=== PATIENT | female | born 1980 | race African-American/Black ===

== ENCOUNTER 2018-09-06 09:00 | Outpatient (RCR) | payer OTHER | END 2018-09-07 | LOC: PT 09:00 | PROVIDERS: ATTEND Specialist | DX: M25.562 Pain in left knee (principal); R26.2 Difficulty in walking, not elsewhere classified; M62.81 Muscle weakness (generalized) ==

== ENCOUNTER 2018-10-04 08:00 | Outpatient (RCR) | payer OTHER | END 2018-10-07 | LOC: PT 08:00 | PROVIDERS: ATTEND Specialist | DX: M25.562 Pain in left knee (principal); R26.2 Difficulty in walking, not elsewhere classified; M62.81 Muscle weakness (generalized) ==

== ENCOUNTER 2019-10-17 08:42 | Emergency (ER) | payer OTHER ==
[~2019-10-17] VITALS: Ht 167.6 cm; Wt 106.6 kg
--- NOTE | 2019-10-17 10:17 | Diagnostic Imaging Report ---
EXAM: CHEST 2 VIEWS DATE: 10/17/2019 8:46 AM INDICATION: Shortness of breath COMPARISON: None FINDINGS: The trachea is midline. The lungs are symmetrically expanded without evidence for large focal consolidation, pneumothorax, or significant pleural effusion. The cardiomediastinal silhouette and pulmonary vasculature are within normal limits. No acute osseous abnormality is identified. The surrounding soft tissues are unremarkable. IMPRESSION: No acute cardiopulmonary process identified. Signed by: Dr. Ashkan Jaramillo MD on 10/17/2019 10:14 AM
--- OUTSIDE RECORDS SUMMARY | 2019-10-27 10:21 | XMS REPORT ---
[facility] Address Unknown Phone Unavailable Care Team Providers Care Manager Application Development Name Role Phone EVELIA LOZOYA Unavailable Unavailable Payers Payer Name Policy Type Policy Number Effective Date Expiration Date Problems This patient has no known problems. Allergies, Adverse Reactions, Alerts Allergy Name Allergy Type Status Severity Reaction(s) Onset Date Inactive Date Treating Clinician Comments Penicillins DA Active U 2019-06-12 00:00:00 Penicillins DA Active U 2013-10-17 00:00:00 Medications This patient has no known medications. Results Test Description Test Time Test Comments Text Results Atomic Results Result Comments CHEST 2 VIEWS 2019-10-17 10:13:00 [place] [id number] Patient Name: HUMBERTO BUI MR #: [id number] : 1980 Age/Sex: 39/F Req #: [id number] Adm Physician: Ordered by: EVELIA LOZOYA MD, MD Report #: [id number] Location: ER Room/Bed: Procedure: [id number] DX/CHEST 2 VIEWS Exam Date: 10/17/19 Exam Time: 900 REPORT STATUS: Signed EXAM: CHEST 2 VIEWS DATE: 10/17/2019 8:46 AM INDICATION: Shortness of breath COMPARISON: None FINDINGS: The trachea is midline. The lungs are symmetrically expanded without evidence for large focal consolidation, pneumothorax, or significant pleural effusion. The cardiomediastinal silhouette and pulmonary vasculature are within normal limits. No acute osseous abnormality is identified. The surrounding soft tissues are unremarkable. IMPRESSION: No acute cardiopulmonary process identified. Signed by: Dr. Ashkan Jaramillo MD on 10/17/2019 10:14 AM Dictated By: ASHKAN JARAMILLO MD 1014 Transcribed By: LIZBETH on 10/17/19 1014 COPY TO: EVELIA LOZOYA - XR ANKLE 3 + V LT 2019-06-12 20:50:00 FAX: Leia Francis NP [place]: St: REG Name: HUMBERTO BUI [facility] : 1980 Age/S: 39/F [address] [facility] Unit #: [id number] Loc: [place] [address] Phys: Leia Francis NP Acct: [id number] Dis Date: Status: REG ER PHONE #: [phone] Exam Date: 06/12/20192031 FAX #: [phone] Reason: pain sp fall EXAMS: CPT CODE: [id number] XR ANKLE 3 + V LT [id number] REASON FOR EXAM: pain sp fall EXAM ORDER DATE: 06/12/2019 8:16 PM Ordering Azeem: Leia Francis NP PROCEDURE: - XR ANKLE 3 + V LT FINDINGS: 3 views of the left ankle were obtained. The osseous structures are unremarkable in size and shape. The joint spaces are maintained. No evidence of fracture. The syndesmosis is intact. IMPRESSION: Unremarkable left ankle at 205 Reported and signed by: Neto Perry M.D. CC: Leia Francis NP Technologist: ROEL HuberR Trnscrd Date/Time/By: 06/12/2019 (2049) : By: Will Orig Print D/T: S: 06/12/2019 (2052) PAGE 1 Signed Report - XR HIP W/PEL UNI 2+V RT 2019-06-12 20:45:00 FAX: Leia Francis NP [place]: St: REG Name: HAOHUMBERTO M [facility] : 1980 Age/S: 39/F [address] [facility] Unit #: [id number] Loc: [place] [address] Phys: Leia Francis NP Acct: [id number] Dis Date: Status: REG ER PHONE #: [phone] Exam Date: 06/12/20192031 FAX #: [phone] Reason: pain sp fall EXAMS: CPT CODE: [id number] XR HIP W/PEL UNI 2+V RT [id number] REASON FOR EXAM: pain sp fall EXAM ORDER DATE: 06/12/2019 8:16 PM Ordering Azeem: Leia Francis NP PROCEDURE: - XR HIP W/PEL UNI 2+V RT FINDINGS: 3 views of the right hip with frontal view of the pelvis were obtained. The osseous structures are unremarkable in size and shape. The joint spaces are maintained. No evidence of fracture. There is normal alignment of the right hip joint IMPRESSION: Unremarkable right hip at 2044 Reported and signed by: Neto Perry M.D. CC: Leia Francis NP Technologist: Mateusz Reynoso RT(R Trnscrd Date/Time/By: 06/12/2019 (2044) : By: CiraVTFranky Orig Print D/T: S: 06/12/2019 (2047) PAGE 1 Signed Report - XR FOOT 3 + V LT 2019-06-12 20:44:00 FAX: Leia Francis NP [place]: St: REG Name: HUMBERTO BUI [facility] : 1980 Age/S: 39/F [address] [facility] Unit #: [id number] Loc: [place] [address] Phys: Leia Francis NP Acct: [id number] Dis Date: Status: REG ER PHONE #: [phone] Exam Date: 06/12/20192031 FAX #: [phone] Reason: pain sp fall EXAMS: CPT CODE: [id number] XR FOOT 3 + [place] [id number] REASON FOR EXAM: pain sp fall EXAM ORDER DATE: 06/12/2019 8:16 PM Ordering Azeem: Leia Francis NP PROCEDURE: - XR FOOT 3 + V LT FINDINGS: 3 views of the left foot were obtained. The osseous structures are unremarkable in size and shape. The joint spaces are maintained. No evidence of fracture. The phalanges are intact. The metatarsal and tarsal bones are unremarkable IMPRESSION: Unremarkable left foot at 2043 Reported and signed by: Neto Perry M.D. CC: Leia Francis NP Technologist: Mateusz Reynoso RT(R Trnscrd Date/Time/By: 06/12/2019 (2043) : By: Will Orig Print D/T: S: 06/12/2019 (2047) PAGE 1 Signed Report SCR MAMM BILATERAL JULIANNE CAD DIGITAL 2019-06-07 13:18:04 - SCR MAMM BILATERAL JULIANNE CAD DIGITALBILATERAL FIRST EVER DIGITAL SCREENING MAMMOGRAM 3D/2D WITH CAD: 06/07/2019CLINICAL: Asymptomatic. Digital breast tomosynthesis was performed in addition to routine CC and MLO views. Current mammographic images were evaluated by either a [employer] [facility] M-Vu or a [employer] ImageChecker CAD (computer aided detection system). No prior exams were available for comparison. There are scattered fibroglandular tissues in both breasts. No suspicious mass, architectural distortion, malignant type calcification, or lymph node abnormality detected. IMPRESSION: NEGATIVEThere is no mammographic evidence of malignancy. Resume annual screening mammography in one year. Juan Baldwin M.D. ss/josie:06/07/2019 13:18:04 Cigarette Filter Inspector: Janae MOSS, [facility]-FWletter sent: BIRADS 1-2 Normal Mammogram BI-RADS: 1 Negative
--- OUTSIDE RECORDS SUMMARY | 2019-10-27 10:21 | XMS REPORT ---
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 Maria Eugenia Whiteside Family history of malignant neoplasm of breast; maternal aunt age 45; BRCA neg active Maria Eugenia Whiteside ADJUSTMENT DISORDER, W/ MIXED ANXIETY AND DEPRESSED MOOD completed - Calderon Landa SPECIAL SCREENING EXAMINATION OTH SPEC VIRAL DZ active Stevo Doherty Tubal ligation, Hx of active Benjamin Salcido Stress at home active Benjamin Salcido Overweight active Benjamin Salcido Screening for hyperlipidemia active José Miguel Hernandez VITREOUS FLOATERS active Stevo Doherty Other vitreous opacities, bilateral completed - Stevo Doherty Abfnd Pap smear HPV DNA active Benjamin Salcido +hrHPV non 16/18/45 Immunization update active Jacinta Khan Headache, tension active Jacinta Frank Asthma active Benjamin Salcido Tobacco use active Preeti Urbina SPECIAL SCREENING EXAMINATION OTH SPEC VIRAL DZ active Stevo Doherty Regular astigmatism, bilateral completed - José Miguel Hernandez HIV INFECTION active José Miguel Hernandez ENCOUNTERS Date Type Provider Location Encounter Diagnosis - Ambulatory Encounter Benjamin Salcido [facility] Adult Medicine UNK - Ambulatory Encounter Benjamin Kelley [facility] Adult Medicine UNK - Ambulatory Encounter Benjamin Salcido [employer] Adult Medicine UNK - Ambulatory Encounter Calderon Alfaro Poole [facility] Behavior[facility] Health UNK - Ambulatory Encounter Neelam Thomas [facility] Behavior[facility] Health UNK - Ambulatory Encounter Benjamin Salcido [employer] Adult Medicine UNK - Ambulatory Encounter Alma Daniel [facility] Services UNK - Ambulatory Encounter Neelam Thomas [facility] Behavioral Health UNK - Ambulatory Encounter Calderon Poole [facility] Behavioral Health UNK - Ambulatory Encounter Benjamin Salcido [facility] Adult Medicine UNK - Ambulatory Encounter Benjamin Marquez [facility] Adult Medicine Screening mammogram NEC - Ambulatory Encounter Timoteo Hernandez [facility] Services UNK - Ambulatory Encounter Shukri Yeung [facility] MEDIATION COMMISSIONER UNK - Ambulatory Encounter Benjamin Omari Salcido [employer] [facility] Adult Medicine UNK - Ambulatory Encounter Calderon Stille Calderon Stille Traceyda Acacia Marie [facility] Behavioral Health ADJUSTMENT DISORDER, W/ MIXED ANXIETY AND DEPRESSED MOODDEPRESSIVE DISORDER, MAJOR, RECURRENT EPISODE, MODERATEGENERALIZED ANXIETY DISORDERDEPRESSIVE DISORDER, MAJOR, RECURRENT EPISODE, MILD - Ambulatory Encounter Benjamin Salcido [employer] [facility] Adult Medicine UNK - Ambulatory Encounter Benjamin Kramer [facility] Adult Medicine UNK - Ambulatory Encounter Benjamin Salcido [employer] [facility] Adult Medicine UNK - Ambulatory Encounter Neelam Benedictsdale [facility] Behavioral Health UNK - Ambulatory Encounter Maria Eugenia Whiteside [facility] MEDIATION COMMISSIONER Family history of malignant neoplasm of breast; maternal aunt age 45; BRCA neg - Ambulatory Encounter Maria Eugenia Whiteside [facility] OB UNK - Ambulatory Encounter Maria Eugenia Whiteside [facility] MEDIATION COMMISSIONER Family history of malignant neoplasm of breast; maternal aunt age 45; BRCA neg - Ambulatory Encounter Neelam William Coronado [facility] Behavioral Health DEPRESSIVE DISORDER, MAJOR, RECURRENT EPISODE, MODERATE - Ambulatory Encounter [facility] Maria Eugenia Whiteside [facility] MEDIATION COMMISSIONER UNK - Ambulatory Encounter Maria Eugenia Whiteside [facility] MEDIATION COMMISSIONER UNK - Ambulatory Encounter Maria Eugenia Correa [facility] MEDIATION COMMISSIONER Cervical high risk human papillomavirus (HPV) DNA test positive; 16/18/45 neg; co-testing in 1 yr - Ambulatory Encounter Neelam William [facility] Behavioral Health UNK - Ambulatory Encounter Bryanna Correa [facility] MEDIATION COMMISSIONER UNK - [facility] - Ambulatory Encounter Neelam William [facility] Behavioral Health UNK - Ambulatory [facility] - [facility]ulatory Encounter [facility] - Ambulatory Encounter Maria Eugenia Whiteside [facility] Adult Medicine UNK - Ambulatory Encounter Maria Eugenia Whiteside [employer] [facility] Adult Medicine UNK - Ambulatory Encounter Maria Eugenia Whiteside C MEDIATION COMMISSIONER UNK - Ambulatory Encounter Maria Eugenia Whiteside Simin Senegal [facility] MEDIATION COMMISSIONER Family history of malignant neoplasm of breast; maternal aunt age 45; BRCA negAnnual city carrier assistant examVenereal disease screening - Ambulatory Encounter Neelam William [facility] Behavioral Health ADJUSTMENT DISORDER, W/ MIXED ANXIETY AND DEPRESSED MOOD - Ambulatory Encounter Stevo Mendez Chas Stevo Doherty [facility] Vision UNK - Ambulatory Encounter Stevo Mendez Chas Stevo Mendez Doherty [facility] Vision UNK - Ambulatory Encounter Stevo Mendez Chas Steov Doherty Nadine Schwarz [facility] Vision SPECIAL SCREENING EXAMINATION OTH SPEC VIRAL DZ - Ambulatory Encounter Mary Almaraz [facility] Vision UNK - Ambulatory Encounter Mynor Rosales [facility] Services UNK - Ambulatory Encounter Sylvie Shin [facility] Behavioral Health UNK - Ambulatory Encounter Sylvie Shin [facility] Behavioral Health UNK - Ambulatory Encounter Benjamin VelasquezLogic [facility] Adult Medicine UNK - [facility] - [facility] Encounter Sylvie VelasquezLogic C Adult Medicine UNK - Ambulatory Encounter Sylvie VelasquezLogic [facility] Adult Medicine UNK - Ambulatory Encounter [facility]ido [facility] UNK - Ambulatory Encounter Benjamin Salcido Benjamin Salcido [facility] Adult Medicine UNK - Ambulatory Encounter Benjamin Salcido Benjamin Salcido Preeti Lawrence [facility] Adult Medicine OverweightStress at homeTubal ligation, Hx of - Ambulatory Encounter Benjamin Salcido Benjamin Salcido [facility] Adult Medicine UNK - Ambulatory Encounter Benjamin Salcido Benjamin Salcido [facility] Adult Medicine UNK - Ambulatory Encounter Benjamin Salcido Benjamin Salcido [facility] Adult Medicine UNK - Ambulatory Encounter Benjamin Salcido [facility]jmain [facility]cido [facility] - Ambulatory Encounter Benjamin Salcido Benjamin Salcido [facility] Adult Medicine UNK - Ambulatory Encounter Benjamin Salcido Benjamin Salcido [facility] Adult Medicine UNK - Ambulatory Encounter Jessie Toure [facility] Adult Medicine UNK - Ambulatory Encounter Jessie Toure [facility] Adult Medicine UNK - Ambulatory Encounter Benjamin Salcido Benjamin Salcido [facility] Adult Medicine UNK - Ambulatory Encounter Elenita [facility] UNK - Ambulatory Encounter Benjamin Salcido Benjamin Salcido [facility] Adult Medicine UNK - Ambulatory Encounter Benjamin Salcido Benjamin Salcido Sara Marie [facility] Adult Medicine UNK - Ambulatory Encounter Benjamin Salcido Benjamin Salcido [facility] Adult Medicine UNK - Ambulatory Encounter Benjamin Salcido Benjamin Salcido [facility] Adult Medicine UNK - Ambulatory Encounter [facility] UNK - Ambulatory Encounter Benjamin Salcido Benjamin Salcido [facility] Adult Medicine UNK - Ambulatory Encounter Benjamin Salcido Benjamin Salcido Preeti Urbina [facility] Adult Medicine UNK - Ambulatory Encounter Benjamin Salcido Benjamin Salcido Sara Marie [facility] Adult Medicine UNK - Ambulatory Encounter Benjamin Salcido Benjamin Salcido Sara Marie [facility] Adult Medicine UNK - Ambulatory Encounter Benjamin Salcido Benjamin Salcido [facility] Adult Medicine UNK - Ambulatory Encounter Benjamin Salcido Benjamin Salcido Freda Bowers [facility] Adult Medicine UNK - Ambulatory Encounter [facility] UNK - Ambulatory Encounter [facility] Care Coordination Desktop [employer] Benjamin Salcido Benjamin Salcido [facility] Adult Medicine UNK - Ambulatory Encounter Benjamin Salcido Benjamin Salcido [facility] Adult Medicine UNK - Ambulatory Encounter Benjamin Salcido Benjamin Salcido [facility] Adult Medicine UNK - Ambulatory Encounter [facility] Care Coordination Desktop [facility] Benjamin Salcido Benjamin Salcido [facility] Adult Medicine UNK - Ambulatory Encounter Benjamin Salcido Benjamin Salcido [facility] Adult Medicine UNK - Ambulatory Encounter Benjamin Salcido Benjamin Urbina [facility] Adult Medicine UNK - Ambulatory Encounter Benjamin Salcido Benjamin Salcido [facility] Adult Medicine UNK - Ambulatory Encounter José Miguel Hernandez [facility] Adult Medicine UNK - Ambulatory Encounter [facility] UNK - Ambulatory Encounter Benjamin Salcido Benjamin Salcidojerrod Marie [facility] Adult Medicine UNK - Ambulatory Encounter José Miguel Hernandez [facility] Adult Medicine UNK - Ambulatory Encounter José Miguel Colon [facility] Adult Medicine HIV INFECTIONRegular astigmatism, bilateralScreening for hyperlipidemia - Ambulatory Encounter Jacinta Marie [facility] Adult Medicine UNK - Ambulatory Encounter Jacinta Marie [facility] UNK - Ambulatory Encounter Jacinta Marie [facility] UNK - Ambulatory Encounter Benjamin Salcido [facility] Adult Medicine UNK - Ambulatory Encounter Corrie Chau [facility] Adult Medicine UNK - Ambulatory Encounter Dileep Aleman [facility] Vision UNK - Ambulatory Encounter Stevo Doherty Stevo Mendez Doherty [facility] Vision UNK - Ambulatory Encounter Stevo Whiteside Vanessa Doherty [facility] Vision UNK - Ambulatory Encounter Stevo Vanessa Chas Stevo Mendez Chas [facility] Other vitreous opacities, bilateralVITREOUS FLOATERS - Ambulatory Encounter Maira Patel [facility] Vision UNK - Ambulatory Encounter Yodit Holland [facility] Crew Person UNK - Ambulatory Encounter Yodit Holland [facility] Crew Person UNK - Ambulatory Encounter Yodithaley Cohendea [facility] Crew Person UNK - Ambulatory Encounter Stevo Whiteside Vanessa Chas Bandaherjerrod Chau [facility] Adult Medicine UNK - Ambulatory Encounter Sue Shannon [facility] Vision UNK - Ambulatory Encounter Dileep Aleman [facility] Vision UNK - Ambulatory Encounter Dileep Aleman [facility] Vision UNK - Ambulatory Encounter Dileep Aleman [facility] Vision UNK - Ambulatory Encounter iDleep Bellfern Shannon [facility] Vision Regular astigmatism, bilateral - Ambulatory Encounter Benjamin Salcido [facility] Adult Medicine UNK - Ambulatory Encounter Benjamin Urbina [facility] Adult Medicine Abfnd Pap smear HPV DNA - Ambulatory Encounter Yodit Holland [facility] Crew Person UNK - Ambulatory Encounter Yodit Holland [facility] Crew Person UNK - Ambulatory Encounter Jacinta Moses [facility] Adult Medicine UNK - Ambulatory Encounter Public Health Services Provider Lory Fowler [facility] Public Health Services UNK - Ambulatory Encounter Public Health Services Provider Loyr Fowler [facility] Public Health Services UNK - Ambulatory Encounter Suyapa Benton [facility] Public Health Services UNK - Ambulatory Encounter Suyapa Benton [facility] Public Health Services UNK - Ambulatory Encounter Suyapa Benton [facility] Public Health Services UNK - Ambulatory Encounter Suyapa Monjorge l [facility] Public Health Services UNK - Ambulatory Encounter Suyapa Benton [facility] Public Health Services UNK - Ambulatory Encounter Neelam William [facility] Crew Person UNK - Ambulatory Encounter Jacinta Marie [facility] Adult Medicine UNK - Ambulatory Encounter Public Health Services Provider Lory Benton [facility] Public Health Services UNK - Ambulatory Encounter Jacinta Leung [facility] Adult Medicine Headache, tensionImmunization update - Ambulatory Encounter Lory Almagueray [facility] Public Health Services UNK - Ambulatory Encounter Jacinta Marie [facility] Adult Medicine UNK - Ambulatory Encounter Public Health Services Provider Lory Janeth Benton LM Public Health Services UNK - Ambulatory Encounter Jacinta Marie [facility] Adult Medicine UNK - Ambulatory Encounter Public Health Services Provider Lory Almagueray Suyapalance Benton [facility] Public Health Services UNK - Ambulatory Encounter Jacinta Goodrich [facility] Adult Medicine UNK - [facility] Ambulatory Encounter Yodit Holland [facility] Crew Person UNK - Ambulatory Encounter Benjamin Salcido Benjamin Salcido [facility] Adult Medicine UNK - Ambulatory Encounter Benjamin Salcido Benjamin Ayersine Preeti Urbina [facility] Adult Medicine UNK - Ambulatory Encounter Mercedesradha Hunter [facility] Adult Medicine UNK - Ambulatory Encounter Yodit Holland LM Crew Person UNK - Ambulatory Encounter Benjamin Salcido Benjamin Salcido [facility] Adult Medicine UNK - Ambulatory Encounter Benjamin Salcido Benjamin Salcido [facility] Adult Medicine UNK - Ambulatory Encounter Benjamin Salcido Benjamin Salcido [facility] Adult Medicine UNK - Ambulatory Encounter Benjamin Salcido Benjamin Salcido [facility] Adult Medicine UNK - Ambulatory Encounter Cadence Locke [facility] Behavioral Health UNK - Ambulatory Encounter Benjamin Salcido Benjamin Salcido [facility] Adult Medicine UNK - Ambulatory Encounter Yodit Vila Locke [facility] Crew Person UNK - Ambulatory Encounter Benjamin Salcido [facility] Adult Medicine UNK - Ambulatory Encounter Benjamin Urbina [facility] Adult Medicine Tobacco useAsthma - Ambulatory Encounter Dileep Aleman [employer] [facility] Vision UNK - Ambulatory Encounter Monae Arceo [facility] Patient Education UNK - Ambulatory Encounter Ryan Moonez Monae Reyesaza [facility] Adult Medicine UNK - Ambulatory Encounter Dileep VelasquezLogic [facility] Vision UNK - Ambulatory Encounter Mairaradha LoeraPatel [facility] Vision UNK - Ambulatory Encounter Glen Guadalupe [facility] Adult Medicine UNK - Ambulatory Encounter Isha Montemayor Glen Guadalupe [facility] Adult Medicine UNK - Ambulatory Encounter Dileep VelasquezLogic [facility] Vision UNK - Ambulatory Encounter Sue Shannon [facility] Vision UNK - Ambulatory Encounter Stevo Doherty [facility] Vision UNK - Ambulatory Encounter Stevo Doherty Maira Patel [facility] Vision SPECIAL SCREENING EXAMINATION OTH SPEC VIRAL DZ - Ambulatory Encounter Sue Shannon [facility] Vision UNK - Ambulatory Encounter Dileep Aleman [facility] Vision UNK - Ambulatory Encounter Dileep Shannon [facility] Vision HIV INFECTIONRegular astigmatism, bilateral VITAL SIGNS No Information Available ALLERGIES Allergy Name Onset Date Reaction Criticality Status PENICILLIN High Criticality active REASON FOR REFERRAL No Information Available RESULTS Date Observation Value Provider Reference Range Interpretation Location rapid plasma reagin antibody, serum Non Reactive [facility] Non Reactive " HIV-1RNA, serum, by PCR, quantitative <20 copies/mL [facility] " alanine aminotransferase (SGPT), serum 14 1/L [facility] 0-32 " aspartate aminotransferase (SGOT), serum 18 1/L [facility] 0-40 " alkaline phosphatase, serum 88 1/L [facility] 39-117 " bilirubin, serum, total 0.2 mg/dL [facility] 0.0-1.2 " albumin/globulin ratio, serum 1.7 [facility] 1.2-2.2 " globulin, serum 2.5 [facility] 1.5-4.5 " albumin, serum 4.3 g/dL [facility] 3.5-5.5 " protein, total, serum 6.8 g/dL [facility] 6.0-8.5 " calcium, serum 9.7 mg/dL [facility] 8.7-10.2 " carbon dioxide, venous blood 24 mmol/L [facility] 20-29 " chloride, serum 100 mmol/L [facility] 96-106 " potassium, serum 5.3 mmol/L [facility] 3.5-5.2 High " sodium, serum 139 mmol/L [facility] 134-144 " urea nitrogen/creatinine ratio, serum 18 [facility] 9-23 " eGFR if 121 mL/min/((173/100).m2) [facility] >59 " Estimated Glomerular Filtration Rate (calc) 105 mL/min/((173/100).m2) [facility] >59 " creatinine, serum 0.72 mg/dL [facility] 0.57-1.00 " urea nitrogen, blood 13 mg/dL [facility] 6-24 " blood glucose, random 71 mg/dL [facility] 65-99 " immature granulocytes, percentage of total cells, blood 0 % [facility] Not Estab. " basophil count, absolute 0.0 x10E3/uL [facility] 0.0-0.2 " Eosinophil Absolute Count 0.2 X10E3/UL [facility] 0.0-0.4 " monocyte count, blood, automated 0.5 X10E3/UL [facility] 0.1-0.9 " lymphocyte count, blood, automated 2.6 X10E3/UL [facility] 0.7-3.1 " Absolute Neutrophils 5.9 X10E3/UL [facility] 1.4-7.0 " basophils as percent of blood leukocytes 0 % [facility] Not Estab. " eosinophils as percent of blood leukocytes 2 % [employer] Not Estab. " monocytes as percent of blood leukocytes 5 % [facility] Not Estab. " lymphocytes as percent of blood leukocytes 29 % [facility] Not Estab. " neutrophils as percent of blood leukocytes 64 % [facility] Not Estab. " platelet count 303 X10E3/UL [facility] 150-450 " red blood cell distribution width 13.4 % [facility] 12.3-15.4 " mean corpuscular hemoglobin concentration, RBC 32.8 G/DL [facility] 31.5-35.7 " mean corpuscular hemoglobin, RBC 31.9 pg [facility] 26.6-33.0 " mean corpuscular volume, RBC 97 fL [facility] 79-97 " hematocrit, blood 43.0 % [facility] 34.0-46.6 " hemoglobin, blood 14.1 g/dL [facility] 11.1-15.9 " erythrocyte (RBC) count 4.42 X10E6/UL [facility] 3.77-5.28 " leukocyte count, blood 9.2 X10E3/UL [facility] 3.4-10.8 " CD4/CD8 ratio 2.42 [facility] 0.92-3.72 " T-suppressor cells (CD8) as percent of blood lymphocytes 22.8 % [facility] 12.0-35.5 " absolute CD8 593 [facility] 109-897 " T-helper cells (CD4) as percent of blood lymphocytes 55.2 % [facility] 30.8-58.5 " T-helper cells (CD4) count 1435 /UL [facility] [phone] hepatitis B surface antigen Negative [facility] Negative " hepatitis C antibody, serum <0.1 [facility] 0.0-0.9 " rapid plasma reagin antibody, serum Non Reactive [facility] Non Reactive " HIV-1RNA, serum, by PCR, quantitative <20 copies/mL [facility] " alanine aminotransferase (SGPT), serum 18 1/L [facility] 0-32 " aspartate aminotransferase (SGOT), serum 19 1/L [facility] 0-40 " alkaline phosphatase, serum 85 1/L [facility] 39-117 " bilirubin, serum, total 0.2 mg/dL [facility] 0.0-1.2 " albumin/globulin ratio, serum 1.5 [facility] 1.2-2.2 " globulin, serum 2.8 [facility] 1.5-4.5 " albumin, serum 4.2 g/dL [facility] 3.5-5.5 " protein, total, serum 7.0 g/dL [facility] 6.0-8.5 " calcium, serum 9.4 mg/dL [facility] 8.7-10.2 " carbon dioxide, venous blood 23 mmol/L [facility] 20-29 " chloride, serum 102 mmol/L [facility] 96-106 " potassium, serum 4.9 mmol/L [facility] 3.5-5.2 " sodium, serum 139 mmol/L [facility] 134-144 " urea nitrogen/creatinine ratio, serum 19 [facility] 9-23 " eGFR if 118 mL/min/((173/100).m2) [facility] >59 " Estimated Glomerular Filtration Rate (calc) 102 mL/min/((173/100).m2) [facility] >59 " creatinine, serum 0.74 mg/dL [facility] 0.57-1.00 " urea nitrogen, blood 14 mg/dL [facility] 6-20 " blood glucose, random 96 mg/dL [facility] 65-99 " immature granulocytes, percentage of total cells, blood 0 % [facility] Not Estab. " basophil count, absolute 0.0 x10E3/uL [facility] 0.0-0.2 " Eosinophil Absolute Count 0.1 X10E3/UL [facility] 0.0-0.4 " monocyte count, blood, automated 0.4 X10E3/UL [facility] 0.1-0.9 " lymphocyte count, blood, automated 2.4 X10E3/UL [facility] 0.7-3.1 " Absolute Neutrophils 4.6 X10E3/UL [facility] 1.4-7.0 " basophils as percent of blood leukocytes 0 % [facility] Not Estab. " eosinophils as percent of blood leukocytes 2 % [employer] Not Estab. " monocytes as percent of blood leukocytes 6 % [facility] Not Estab. " lymphocytes as percent of blood leukocytes 31 % [facility] Not Estab. " neutrophils as percent of blood leukocytes 61 % [facility] Not Estab. " platelet count 264 X10E3/UL [facility] 150-450 " red blood cell distribution width 13.5 % [facility] 12.3-15.4 " mean corpuscular hemoglobin concentration, RBC 33.2 G/DL [facility] 31.5-35.7 " mean corpuscular hemoglobin, RBC 31.4 pg [facility] 26.6-33.0 " mean corpuscular volume, RBC 95 fL [facility] 79-97 " hematocrit, blood 40.7 % [facility] 34.0-46.6 " hemoglobin, blood 13.5 g/dL [facility] 11.1-15.9 " erythrocyte (RBC) count 4.30 X10E6/UL [facility] 3.77-5.28 " leukocyte count, blood 7.6 X10E3/UL [facility] 3.4-10.8 " CD4/CD8 ratio 2.56 [facility] 0.92-3.72 " T-suppressor cells (CD8) as percent of blood lymphocytes 22.3 % [facility] 12.0-35.5 " absolute CD8 535 [facility] 109-897 " T-helper cells (CD4) as percent of blood lymphocytes 57.1 % [facility] 30.8-58.5 " T-helper cells (CD4) count 1370 /UL [facility] [phone] LDL cholesterol, serum 80 mg/dL [facility] 0-99 " very low density lipoproteins 24 mg/dL [facility] 5-40 " HDL cholesterol, serum 57 mg/dL [facility] >39 " triglyceride, serum, fasting 119 mg/dL [facility] 0-149 " cholesterol, serum 161 mg/dL [facility] 092-614 3161/10/19 Quantiferon Gold TB blood test for tuberculosis screening Negative [facility] Negative Neisseria gonorrhoeae DNA probe Negative [facility] Negative " chlamydia DNA probe Negative [facility] Negative hepatitis B surface antigen Negative [facility] Negative " thyroid stimulating hormone, serum 1.320 u[iU]/mL [facility] 0.450-4.500 " hepatitis C antibody, serum <0.1 [facility] 0.0-0.9 " rapid plasma reagin antibody, serum Non Reactive [facility] Non Reactive " rubella antibody, serum, IgG 1.65 [facility] Immune >0.99 " hemoglobin A1C, blood, as % of total hemoglobin 5.6 % [facility] 4.8-5.6 " alanine aminotransferase (SGPT), serum 20 1/L [facility] 0-32 " aspartate aminotransferase (SGOT), serum 22 1/L [facility] 0-40 " alkaline phosphatase, serum 83 1/L [facility] 39-117 " bilirubin, serum, total <0.2 mg/dL [facility] 0.0-1.2 " albumin/globulin ratio, serum 1.6 [facility] 1.2-2.2 " globulin, serum 2.8 [facility] 1.5-4.5 " albumin, serum 4.5 g/dL [facility] 3.5-5.5 " protein, total, serum 7.3 g/dL [facility] 6.0-8.5 " calcium, serum 8.9 mg/dL [facility] 8.7-10.2 " carbon dioxide, venous blood 22 mmol/L [facility] 20-29 " chloride, serum 100 mmol/L [facility] 96-106 " potassium, serum 4.3 mmol/L [facility] 3.5-5.2 " sodium, serum 140 mmol/L [facility] 134-144 " urea nitrogen/creatinine ratio, serum 15 [facility] 9-23 " eGFR if 84 mL/min/((173/100).m2) [facility] >59 " Estimated Glomerular Filtration Rate (calc) 73 mL/min/((173/100).m2) [facility] >59 " creatinine, serum 0.98 mg/dL [facility] 0.57-1.00 " urea nitrogen, blood 15 mg/dL [facility] 6-20 " blood glucose, random 84 mg/dL [facility] 65-99 " immature granulocytes, percentage of total cells, blood 0 % [facility] Not Estab. " basophil count, absolute 0.0 x10E3/uL [facility] 0.0-0.2 " Eosinophil Absolute Count 0.1 X10E3/UL [facility] 0.0-0.4 " monocyte count, blood, automated 0.4 X10E3/UL [facility] 0.1-0.9 " lymphocyte count, blood, automated 2.8 X10E3/UL [facility] 0.7-3.1 " Absolute Neutrophils 5.0 X10E3/UL [facility] 1.4-7.0 " basophils as percent of blood leukocytes 0 % [facility] Not Estab. " eosinophils as percent of blood leukocytes 2 % [facility] Not Estab. " monocytes as percent of blood leukocytes 4 % [facility] Not Estab. " lymphocytes as percent of blood leukocytes 34 % [facility] Not Estab. " neutrophils as percent of blood leukocytes 60 % [facility] Not Estab. " platelet count 268 X10E3/UL [facility] 150-379 " red blood cell distribution width 13.5 % [facility] 12.3-15.4 " mean corpuscular hemoglobin concentration, RBC 33.8 G/DL [facility] 31.5-35.7 " mean corpuscular hemoglobin, RBC 32.1 pg [facility] 26.6-33.0 " mean corpuscular volume, RBC 95 fL [facility] 79-97 " hematocrit, blood 41.1 % [facility] 34.0-46.6 " hemoglobin, blood 13.9 g/dL [facility] 11.1-15.9 " erythrocyte (RBC) count 4.33 X10E6/UL [facility] 3.77-5.28 " leukocyte count, blood 8.4 X10E3/UL [facility] 3.4-10.8 LDL cholesterol, serum 86 mg/dL [facility] 0-99 " very low density lipoproteins 30 mg/dL [facility] 5-40 " HDL cholesterol, serum 62 mg/dL [facility] >39 " triglyceride, serum, fasting 150 mg/dL [facility] 0-149 High " cholesterol, serum 178 mg/dL [facility] [id number] 1677/10/19 rapid plasma reagin antibody, serum Non Reactive [facility] Non Reactive " HIV-1RNA, serum, by PCR, quantitative <20 copies/mL [facility] " alanine aminotransferase (SGPT), serum 18 1/L [facility] 0-32 " aspartate aminotransferase (SGOT), serum 19 1/L [facility] 0-40 " alkaline phosphatase, serum 83 1/L [facility] 39-117 " bilirubin, serum, total 0.4 mg/dL [facility] 0.0-1.2 " albumin/globulin ratio, serum 1.7 [facility] 1.2-2.2 " globulin, serum 2.6 [facility] 1.5-4.5 " albumin, serum 4.4 g/dL [facility] 3.5-5.5 " protein, total, serum 7.0 g/dL [facility] 6.0-8.5 " calcium, serum 9.6 mg/dL [facility] 8.7-10.2 " carbon dioxide, venous blood 24 mmol/L [facility] 20-29 " chloride, serum 102 mmol/L [facility] 96-106 " potassium, serum 4.8 mmol/L [facility] 3.5-5.2 " sodium, serum 139 mmol/L [facility] 134-144 " urea nitrogen/creatinine ratio, serum 14 [facility] 9-23 " eGFR if 101 mL/min/((173/100).m2) [facility] >59 " Estimated Glomerular Filtration Rate (calc) 88 mL/min/((173/100).m2) [facility] >59 " creatinine, serum 0.84 mg/dL [facility] 0.57-1.00 " urea nitrogen, blood 12 mg/dL [facility] 6-20 " blood glucose, random 105 mg/dL [facility] 65-99 High " immature granulocytes, percentage of total cells, blood 0 % [facility] Not Estab. " basophil count, absolute 0.0 x10E3/uL [facility] 0.0-0.2 " Eosinophil Absolute Count 0.1 X10E3/UL [facility] 0.0-0.4 " monocyte count, blood, automated 0.3 X10E3/UL [facility] 0.1-0.9 " lymphocyte count, blood, automated 2.0 X10E3/UL [facility] 0.7-3.1 " Absolute Neutrophils 4.9 X10E3/UL [facility] 1.4-7.0 " basophils as percent of blood leukocytes 0 % [facility] Not Estab. " eosinophils as percent of blood leukocytes 2 % [facility] Not Estab. " monocytes as percent of blood leukocytes 4 % [facility] Not Estab. " lymphocytes as percent of blood leukocytes 27 % [facility] Not Estab. " neutrophils as percent of blood leukocytes 67 % [facility] Not Estab. " platelet count 288 X10E3/UL [facility] 150-379 " red blood cell distribution width 13.0 % [facility] 12.3-15.4 " mean corpuscular hemoglobin concentration, RBC 33.0 G/DL [facility] 31.5-35.7 " mean corpuscular hemoglobin, RBC 31.2 pg [facility] 26.6-33.0 " mean corpuscular volume, RBC 95 fL [facility] 79-97 " hematocrit, blood 43.6 % [facility] 34.0-46.6 " hemoglobin, blood 14.4 g/dL [facility] 11.1-15.9 " erythrocyte (RBC) count 4.61 X10E6/UL [facility] 3.77-5.28 " leukocyte count, blood 7.4 X10E3/UL [facility] 3.4-10.8 " CD4/CD8 ratio 2.61 [facility] 0.92-3.72 " T-suppressor cells (CD8) as percent of blood lymphocytes 22.8 % [facility] 12.0-35.5 " absolute CD8 456 [facility] 109-897 " T-helper cells (CD4) as percent of blood lymphocytes 59.6 % [facility] 30.8-58.5 High " T-helper cells (CD4) count 1192 /UL [facility] [phone] hepatitis B surface antigen Negative [facility] Negative " hepatitis C antibody, serum <0.1 [facility] 0.0-0.9 " rapid plasma reagin antibody, serum Non Reactive [facility] Non Reactive " HIV-1RNA, serum, by PCR, quantitative <20 copies/mL [facility] " LDL cholesterol, serum 100 mg/dL [facility] 0-99 High " very low density lipoproteins 20 mg/dL [facility] 5-40 " HDL cholesterol, serum 64 mg/dL [facility] >39 " triglyceride, serum, fasting 100 mg/dL [facility] 0-149 " cholesterol, serum 184 mg/dL [facility] 100-199 " alanine aminotransferase (SGPT), serum 14 1/L [facility] 0-32 " aspartate aminotransferase (SGOT), serum 18 1/L [facility] 0-40 " alkaline phosphatase, serum 80 1/L [facility] 39-117 " bilirubin, serum, total 0.2 mg/dL [facility] 0.0-1.2 " albumin/globulin ratio, serum 1.6 [facility] 1.2-2.2 " globulin, serum 2.6 [facility] 1.5-4.5 " albumin, serum 4.2 g/dL [facility] 3.5-5.5 " protein, total, serum 6.8 g/dL [facility] 6.0-8.5 " calcium, serum 9.3 mg/dL [facility] 8.7-10.2 " carbon dioxide, venous blood 25 mmol/L [facility] 18-29 " chloride, serum 100 mmol/L [facility] 96-106 " potassium, serum 4.3 mmol/L [facility] 3.5-5.2 " sodium, serum 141 mmol/L [facility] 134-144 " urea nitrogen/creatinine ratio, serum 15 [facility] 9-23 " eGFR if 112 mL/min/((173/100).m2) [facility] >59 " Estimated Glomerular Filtration Rate (calc) 97 mL/min/((173/100).m2) [facility] >59 " creatinine, serum 0.78 mg/dL [facility] 0.57-1.00 " urea nitrogen, blood 12 mg/dL [facility] 6-20 " blood glucose, random 90 mg/dL [facility] 65-99 " immature granulocytes, percentage of total cells, blood 0 % [facility] Not Estab. " basophil count, absolute 0.0 x10E3/uL [facility] 0.0-0.2 " Eosinophil Absolute Count 0.2 X10E3/UL [facility] 0.0-0.4 " monocyte count, blood, automated 0.5 X10E3/UL [facility] 0.1-0.9 " lymphocyte count, blood, automated 2.7 X10E3/UL [facility] 0.7-3.1 " Absolute Neutrophils 5.1 X10E3/UL [facility] 1.4-7.0 " basophils as percent of blood leukocytes 0 % [facility] Not Estab. " eosinophils as percent of blood leukocytes 2 % [facility] Not Estab. " monocytes as percent of blood leukocytes 6 % [facility] Not Estab. " lymphocytes as percent of blood leukocytes 32 % [facility] Not Estab. " neutrophils as percent of blood leukocytes 60 % [facility] Not Estab. " platelet count 266 X10E3/UL [facility] 150-379 " red blood cell distribution width 13.1 % [facility] 12.3-15.4 " mean corpuscular hemoglobin concentration, RBC 33.8 G/DL [facility] 31.5-35.7 " mean corpuscular hemoglobin, RBC 31.8 pg [facility] 26.6-33.0 " mean corpuscular volume, RBC 94 fL [facility] 79-97 " hematocrit, blood 40.0 % [facility] 34.0-46.6 " hemoglobin, blood 13.5 g/dL [facility] 11.1-15.9 " erythrocyte (RBC) count 4.25 X10E6/UL [facility] 3.77-5.28 " leukocyte count, blood 8.5 X10E3/UL [facility] 3.4-10.8 " CD4/CD8 ratio 2.62 [facility] 0.92-3.72 " T-suppressor cells (CD8) as percent of blood lymphocytes 22.9 % [facility] 12.0-35.5 " absolute CD8 618 [facility] 109-897 " T-helper cells (CD4) as percent of blood lymphocytes 59.9 % [facility] 30.8-58.5 High " T-helper cells (CD4) count 1617 /UL [facility] [id number] High rapid plasma reagin antibody, serum Non Reactive [facility] Non Reactive " HIV-1RNA, serum, by PCR, quantitative <20 copies/mL [facility] " LDL cholesterol, serum 98 mg/dL [facility] 0-99 " very low density lipoproteins 21 mg/dL [facility] 5-40 " HDL cholesterol, serum 57 mg/dL [facility] >39 " triglyceride, serum, fasting 104 mg/dL [facility] 0-149 " cholesterol, serum 176 mg/dL [facility] 100-199 " alanine aminotransferase (SGPT), serum 18 1/L [facility] 0-32 " aspartate aminotransferase (SGOT), serum 15 1/L [facility] 0-40 " alkaline phosphatase, serum 88 1/L [facility] 39-117 " bilirubin, serum, total 0.5 mg/dL [facility] 0.0-1.2 " albumin/globulin ratio, serum 1.5 [facility] 1.2-2.2 " globulin, serum 2.9 [facility] 1.5-4.5 " albumin, serum 4.3 g/dL [facility] 3.5-5.5 " protein, total, serum 7.2 g/dL [facility] 6.0-8.5 " calcium, serum 9.4 mg/dL [facility] 8.7-10.2 " carbon dioxide, venous blood 23 mmol/L [facility] 18-29 " chloride, serum 102 mmol/L [facility] 96-106 " potassium, serum 4.8 mmol/L [facility] 3.5-5.2 " sodium, serum 141 mmol/L [facility] 134-144 " urea nitrogen/creatinine ratio, serum 16 [facility] 9-23 " eGFR if 113 mL/min/((173/100).m2) [facility] >59 " Estimated Glomerular Filtration Rate (calc) 98 mL/min/((173/100).m2) [facility] >59 " creatinine, serum 0.77 mg/dL [facility] 0.57-1.00 " urea nitrogen, blood 12 mg/dL [facility] 6-20 " blood glucose, random 106 mg/dL [facility] 65-99 High " immature granulocytes, percentage of total cells, blood 0 % [facility] " basophil count, absolute 0.0 x10E3/uL [facility] 0.0-0.2 " Eosinophil Absolute Count 0.2 X10E3/UL [facility] 0.0-0.4 " monocyte count, blood, automated 0.5 X10E3/UL [facility] 0.1-0.9 " lymphocyte count, blood, automated 2.5 X10E3/UL [facility] 0.7-3.1 " Absolute Neutrophils 6.1 X10E3/UL [facility] 1.4-7.0 " basophils as percent of blood leukocytes 0 % [facility] " eosinophils as percent of blood leukocytes 2 % [facility] " monocytes as percent of blood leukocytes 5 % [facility] " lymphocytes as percent of blood leukocytes 27 % [facility] " neutrophils as percent of blood leukocytes 66 % [facility] " platelet count 258 X10E3/UL [facility] 150-379 " red blood cell distribution width 13.4 % [facility] 12.3-15.4 " mean corpuscular hemoglobin concentration, RBC 33.9 G/DL [facility] 31.5-35.7 " mean corpuscular hemoglobin, RBC 32.6 pg [facility] 26.6-33.0 " mean corpuscular volume, RBC 96 fL [facility] 79-97 " hematocrit, blood 43.6 % [facility] 34.0-46.6 " hemoglobin, blood 14.8 g/dL [facility] 11.1-15.9 " erythrocyte (RBC) count 4.54 X10E6/UL [facility] 3.77-5.28 " leukocyte count, blood 9.3 X10E3/UL [facility] 3.4-10.8 " CD4/CD8 ratio 2.55 [facility] 0.92-3.72 " T-suppressor cells (CD8) as percent of blood lymphocytes 23.1 % [facility] 12.0-35.5 " absolute CD8 578 [facility] 109-897 " T-helper cells (CD4) as percent of blood lymphocytes 59.0 % [facility] 30.8-58.5 High " T-helper cells (CD4) count 1475 /UL [facility] [id number] hepatitis C antibody, serum <0.1 [facility] 0.0-0.9 " rapid plasma reagin antibody, serum Non Reactive [facility] Non Reactive " HIV-1RNA, serum, by PCR, quantitative <20 copies/mL [facility] " alanine aminotransferase (SGPT), serum 25 1/L [facility] 0-32 " aspartate aminotransferase (SGOT), serum 16 1/L [facility] 0-40 " alkaline phosphatase, serum 92 1/L [facility] 39-117 " bilirubin, serum, total 0.3 mg/dL [facility] 0.0-1.2 " albumin/globulin ratio, serum 1.9 [facility] 1.2-2.2 " globulin, serum 2.2 [facility] 1.5-4.5 " albumin, serum 4.1 g/dL [facility] 3.5-5.5 " protein, total, serum 6.3 g/dL [facility] 6.0-8.5 " calcium, serum 9.0 mg/dL [facility] 8.7-10.2 " carbon dioxide, venous blood 25 mmol/L [facility] 18-29 " chloride, serum 102 mmol/L [facility] 96-106 " potassium, serum 4.4 mmol/L [facility] 3.5-5.2 " sodium, serum 140 mmol/L [facility] 134-144 " urea nitrogen/creatinine ratio, serum 14 [facility] 8-20 " eGFR if 114 mL/min/((173/100).m2) [facility] >59 " Estimated Glomerular Filtration Rate (calc) 99 mL/min/((173/100).m2) [facility] >59 " creatinine, serum 0.77 mg/dL [facility] 0.57-1.00 " urea nitrogen, blood 11 mg/dL [facility] 6-20 " blood glucose, random 125 mg/dL [facility] 65-99 High " immature granulocytes, percentage of total cells, blood 0 % [facility] " basophil count, absolute 0.0 x10E3/uL [facility] 0.0-0.2 " Eosinophil Absolute Count 0.1 X10E3/UL [facility] 0.0-0.4 " monocyte count, blood, automated 0.3 X10E3/UL [facility] 0.1-0.9 " lymphocyte count, blood, automated 2.1 X10E3/UL [facility] 0.7-3.1 " Absolute Neutrophils 5.6 X10E3/UL [facility] 1.4-7.0 " basophils as percent of blood leukocytes 0 % [facility] " eosinophils as percent of blood leukocytes 2 % [facility] " monocytes as percent of blood leukocytes 4 % [facility] " lymphocytes as percent of blood leukocytes 26 % [facility] " neutrophils as percent of blood leukocytes 68 % [facility] " platelet count 242 X10E3/UL [facility] 150-379 " red blood cell distribution width 12.9 % [facility] 12.3-15.4 " mean corpuscular hemoglobin concentration, RBC 33.7 G/DL [facility] 31.5-35.7 " mean corpuscular hemoglobin, RBC 31.7 pg [facility] 26.6-33.0 " mean corpuscular volume, RBC 94 fL [facility] 79-97 " hematocrit, blood 41.2 % [facility] 34.0-46.6 " hemoglobin, blood 13.9 g/dL [facility] 11.1-15.9 " erythrocyte (RBC) count 4.38 X10E6/UL [facility] 3.77-5.28 " leukocyte count, blood 8.1 X10E3/UL [facility] 3.4-10.8 " CD4/CD8 ratio 2.83 [facility] 0.92-3.72 " T-suppressor cells (CD8) as percent of blood lymphocytes 21.2 % [facility] 12.0-35.5 " absolute CD8 445 [facility] 109-897 " T-helper cells (CD4) as percent of blood lymphocytes 59.9 % [facility] 30.8-58.5 High " T-helper cells (CD4) count 1258 /UL [facility] [phone] Quantiferon Gold TB blood test for tuberculosis screening Negative [facility] Negative " rapid plasma reagin antibody, serum Non Reactive [facility] Non Reactive " HIV-1RNA, serum, by PCR, quantitative <20 copies/mL [facility] " alanine aminotransferase (SGPT), serum 24 1/L [facility] 0-32 " aspartate aminotransferase (SGOT), serum 20 1/L [facility] 0-40 " alkaline phosphatase, serum 81 1/L [facility] 39-117 " bilirubin, serum, total 0.2 mg/dL [facility] 0.0-1.2 " albumin/globulin ratio, serum 1.8 [facility] 1.1-2.5 " globulin, serum 2.4 [facility] 1.5-4.5 " albumin, serum 4.2 g/dL [facility] 3.5-5.5 " protein, total, serum 6.6 g/dL [facility] 6.0-8.5 " calcium, serum 8.8 mg/dL [facility] 8.7-10.2 " carbon dioxide, venous blood 26 mmol/L [facility] 18-29 " chloride, serum 102 mmol/L [facility] 97-106 " potassium, serum 4.6 mmol/L [facility] 3.5-5.2 " sodium, serum 141 mmol/L [facility] 136-144 " urea nitrogen/creatinine ratio, serum 16 [facility] 8-20 " eGFR if 120 mL/min/((173/100).m2) [facility] >59 " Estimated Glomerular Filtration Rate (calc) 104 mL/min/((173/100).m2) [facility] >59 " creatinine, serum 0.74 mg/dL [facility] 0.57-1.00 " urea nitrogen, blood 12 mg/dL [facility] 6-20 " blood glucose, random 87 mg/dL [facility] 65-99 " immature granulocytes, percentage of total cells, blood 0 % [facility] " basophil count, absolute 0.0 x10E3/uL [facility] 0.0-0.2 " Eosinophil Absolute Count 0.2 X10E3/UL [facility] 0.0-0.4 " monocyte count, blood, automated 0.6 X10E3/UL [facility] 0.1-0.9 " lymphocyte count, blood, automated 3.5 X10E3/UL [facility] 0.7-3.1 High " Absolute Neutrophils 7.1 X10E3/UL [facility] 1.4-7.0 High " basophils as percent of blood leukocytes 0 % [facility] " eosinophils as percent of blood leukocytes 2 % [facility] " monocytes as percent of blood leukocytes 5 % [facility] " lymphocytes as percent of blood leukocytes 31 % [facility] " neutrophils as percent of blood leukocytes 62 % [facility] " platelet count 253 X10E3/UL [facility] 150-379 " red blood cell distribution width 13.2 % [facility] 12.3-15.4 " mean corpuscular hemoglobin concentration, RBC 34.6 G/DL [facility] 31.5-35.7 " mean corpuscular hemoglobin, RBC 31.6 pg [facility] 26.6-33.0 " mean corpuscular volume, RBC 91 fL [facility] 79-97 " hematocrit, blood 39.3 % [facility] 34.0-46.6 " hemoglobin, blood 13.6 g/dL [facility] 11.1-15.9 " erythrocyte (RBC) count 4.30 X10E6/UL [facility] 3.77-5.28 " leukocyte count, blood 11.4 X10E3/UL [facility] 3.4-10.8 High " CD4/CD8 ratio 2.36 [facility] 0.92-3.72 " T-suppressor cells (CD8) as percent of blood lymphocytes 24.0 % [facility] 12.0-35.5 " absolute CD8 840 [facility] 109-897 " T-helper cells (CD4) as percent of blood lymphocytes 56.6 % [facility] 30.8-58.5 " T-helper cells (CD4) count 1981 /UL [facility] [phone] High hepatitis A antibody, total Positive [facility] Negative Abnormal " hepatitis B core antibody, total Negative [facility] Negative " hepatitis B surface antigen Negative [facility] Negative " rapid plasma reagin antibody, serum Non Reactive [facility] Non Reactive " hepatitis C antibody, serum <0.1 [facility] 0.0-0.9 " HIV-2 antibodies, western blot Negative [facility] Negative " HIV-1/HIV-2 Ab, serum Positive [facility] Negative Abnormal " HIV-CMIA (Chemiluminescent Microparticle Immuno Assay) REAAL [facility] Non Reactive " toxoplasma gondii antibody, IgG <3.0 [facility] 0.0-7.1 " hepatitis B surface antibody Reactive [facility] " HIV-1RNA, serum, by PCR, quantitative <20 copies/mL [facility] " LDL cholesterol, serum 111 mg/dL [facility] 0-99 High " very low density lipoproteins 28 mg/dL [facility] 5-40 " HDL cholesterol, serum 53 mg/dL [facility] >39 " triglyceride, serum, fasting 142 mg/dL [facility] 0-149 " cholesterol, serum 192 mg/dL [facility] 100-199 " alanine aminotransferase (SGPT), serum 30 1/L [facility] 0-32 " aspartate aminotransferase (SGOT), serum 21 1/L [facility] 0-40 " alkaline phosphatase, serum 107 1/L [facility] 39-117 " bilirubin, serum, total 0.3 mg/dL [facility] 0.0-1.2 " albumin/globulin ratio, serum 1.4 [facility] 1.1-2.5 " globulin, serum 3.0 [facility] 1.5-4.5 " albumin, serum 4.1 g/dL [facility] 3.5-5.5 " protein, total, serum 7.1 g/dL [facility] 6.0-8.5 " calcium, serum 9.4 mg/dL [facility] 8.7-10.2 " carbon dioxide, venous blood 25 mmol/L [facility] 18-29 " chloride, serum 99 mmol/L [facility] 97-108 " potassium, serum 4.4 mmol/L [facility] 3.5-5.2 " sodium, serum 140 mmol/L [facility] 134-144 " urea nitrogen/creatinine ratio, serum 16 [facility] 8-20 " eGFR if 90 mL/min/((173/100).m2) [facility] >59 " Estimated Glomerular Filtration Rate (calc) 78 mL/min/((173/100).m2) [facility] >59 " creatinine, serum 0.94 mg/dL [facility] 0.57-1.00 " urea nitrogen, blood 15 mg/dL [facility] 6-20 " blood glucose, random 86 mg/dL [facility] 65-99 " immature granulocytes, percentage of total cells, blood 0 % [facility] " basophil count, absolute 0.1 x10E3/uL [facility] 0.0-0.2 " Eosinophil Absolute Count 0.2 X10E3/UL [facility] 0.0-0.4 " monocyte count, blood, automated 0.5 X10E3/UL [facility] 0.1-0.9 " lymphocyte count, blood, automated 3.0 X10E3/UL [facility] 0.7-3.1 " Absolute Neutrophils 6.7 X10E3/UL [facility] 1.4-7.0 " basophils as percent of blood leukocytes 1 % [facility] " eosinophils as percent of blood leukocytes 2 % [facility] " monocytes as percent of blood leukocytes 5 % [facility] " lymphocytes as percent of blood leukocytes 29 % [facility] " neutrophils as percent of blood leukocytes 63 % [facility] " platelet count 277 X10E3/UL [facility] 150-379 " red blood cell distribution width 13.3 % [facility] 12.3-15.4 " mean corpuscular hemoglobin concentration, RBC 33.1 G/DL [facility] 31.5-35.7 " mean corpuscular hemoglobin, RBC 31.5 pg [facility] 26.6-33.0 " mean corpuscular volume, RBC 95 fL [facility] 79-97 " hematocrit, blood 44.4 % [facility] 34.0-46.6 " hemoglobin, blood 14.7 g/dL [facility] 11.1-15.9 " erythrocyte (RBC) count 4.67 X10E6/UL [facility] 3.77-5.28 " leukocyte count, blood 10.4 X10E3/UL [facility] 3.4-10.8 " CD4/CD8 ratio 2.81 [facility] 0.92-3.72 " T-suppressor cells (CD8) as percent of blood lymphocytes 21.3 % [facility] 12.0-35.5 " absolute CD8 639 [facility] 109-897 " T-helper cells (CD4) as percent of blood lymphocytes 59.9 % [facility] 30.8-58.5 High " T-helper cells (CD4) count 1797 /UL [facility] [phone] High Neisseria gonorrhoeae DNA probe Negative [facility] Negative " chlamydia DNA probe Negative [facility] Negative hepatitis A antibody, total Positive [facility] Negative Abnormal " hepatitis B core antibody, total Negative [facility] Negative " hepatitis B surface antigen Negative [facility] Negative " thyroid stimulating hormone, serum 1.260 u[iU]/mL [facility] 0.450-4.500 " rapid plasma reagin antibody, serum Non Reactive [facility] Non Reactive " hepatitis C antibody, serum <0.1 [facility] 0.0-0.9 " HIV-1/HIV-2 Ab, serum Reactive [facility] Non Reactive Abnormal " HIV-CMIA (Chemiluminescent Microparticle Immuno Assay) Reactive [facility] Non Reactive Abnormal " hepatitis B surface antibody Reactive [facility] " hemoglobin A1C, blood, as % of total hemoglobin 5.6 % [facility] 4.8-5.6 " HIV-1RNA, serum, by PCR, quantitative <20 copies/mL [facility] " LDL cholesterol, serum 105 mg/dL [facility] 0-99 High " very low density lipoproteins 28 mg/dL [facility] 5-40 " HDL cholesterol, serum 53 mg/dL [facility] >39 " triglyceride, serum, fasting 138 mg/dL [facility] 0-149 " cholesterol, serum 186 mg/dL [facility] 100-199 " alanine aminotransferase (SGPT), serum 22 1/L [facility] 0-32 " aspartate aminotransferase (SGOT), serum 21 1/L [facility] 0-40 " alkaline phosphatase, serum 84 1/L [facility] 39-117 " bilirubin, serum, total 0.2 mg/dL [facility] 0.0-1.2 " albumin/globulin ratio, serum 1.7 [facility] 1.1-2.5 " globulin, serum 2.5 [facility] 1.5-4.5 " albumin, serum 4.2 g/dL [facility] 3.5-5.5 " protein, total, serum 6.7 g/dL [facility] 6.0-8.5 " calcium, serum 9.6 mg/dL [facility] 8.7-10.2 " carbon dioxide, venous blood 22 mmol/L [facility] 18-29 " chloride, serum 103 mmol/L [facility] 97-108 " potassium, serum 4.9 mmol/L [facility] 3.5-5.2 " sodium, serum 140 mmol/L [facility] 134-144 " urea nitrogen/creatinine ratio, serum 20 [facility] 8-20 " eGFR if 120 mL/min/((173/100).m2) [facility] >59 " Estimated Glomerular Filtration Rate (calc) 104 mL/min/((173/100).m2) [facility] >59 " creatinine, serum 0.74 mg/dL [facility] 0.57-1.00 " urea nitrogen, blood 15 mg/dL [facility] 6-20 " blood glucose, random 78 mg/dL [facility] 65-99 " immature granulocytes, percentage of total cells, blood 0 % [facility] " basophil count, absolute 0.0 x10E3/uL [facility] 0.0-0.2 " Eosinophil Absolute Count 0.1 X10E3/UL [facility] 0.0-0.4 " monocyte count, blood, automated 0.5 X10E3/UL [facility] 0.1-0.9 " lymphocyte count, blood, automated 2.6 X10E3/UL [facility] 0.7-3.1 " Absolute Neutrophils 6.4 X10E3/UL [facility] 1.4-7.0 " basophils as percent of blood leukocytes 0 % [facility] " eosinophils as percent of blood leukocytes 1 % [facility] " monocytes as percent of blood leukocytes 5 % [facility] " lymphocytes as percent of blood leukocytes 27 % [facility] " neutrophils as percent of blood leukocytes 67 % [facility] " platelet count 280 X10E3/UL [facility] 150-379 " red blood cell distribution width 13.3 % [facility] 12.3-15.4 " mean corpuscular hemoglobin concentration, RBC 34.1 G/DL [facility] 31.5-35.7 " mean corpuscular hemoglobin, RBC 31.2 pg [facility] 26.6-33.0 " mean corpuscular volume, RBC 91 fL [facility] 79-97 " hematocrit, blood 41.9 % [facility] 34.0-46.6 " hemoglobin, blood 14.3 g/dL [facility] 11.1-15.9 " erythrocyte (RBC) count 4.59 X10E6/UL [facility] 3.77-5.28 " leukocyte count, blood 9.7 X10E3/UL [facility] 3.4-10.8 " CD4/CD8 ratio 2.80 [facility] 0.92-3.72 " T-suppressor cells (CD8) as percent of blood lymphocytes 21.5 % [facility] 12.0-35.5 " absolute CD8 559 [facility] [id number] " T-helper cells (CD4) as percent of blood lymphocytes 60.2 % [facility] 30.8-58.5 High " T-helper cells (CD4) count 1565 /UL [facility] [phone] High Neisseria gonorrhoeae DNA probe Negative [facility] Negative " chlamydia DNA probe Negative [facility] Negative pH, urine, semiquantitative 5.5 Benjamin Omari " specific gravity, urine 1.025 Benjamin Salcido " beta HCG, urine, semiquantitative negative Preeti Urbina " glucose, urine, semiquantitative negative Preeti Urbina " bilirubin, urine negative Preeti Urbina " ketones, urine, by test strip negative Preeti Urbina " blood in urine (hemoglobin) by dipstick negative Preeti Urbina " protein, urine, semiquantitative (dipstick) negative Preeti Urbina " urobilinogen, urine, semiquantitative (dipstick) negative Preeti Urbina " nitrite, urine, semiquantitative negative Preeti Urbina " leukocyte esterase, urine, by dipstick trace Benjamin Omari " appearance, urine clear Preeti Urbina " urine color yellow Preeti Urbina HIV-1RNA, serum, by PCR, quantitative <20 Sue Shannon T-helper cells (CD4) count 1436 uL Sue Shannon HISTORY OF IMMUNIZATIONS Date Vaccine Dose Lot Number Status Fluzone Quadrivalent IM PF 0.5 ML [facility] [address]-44 [facility] HISTORY OF MEDICATION USE Medication Instructions Dates Provider Comments CHANTIX CONTINUING MONTH STEPHANIE 1 MG ORAL TABLET take as directed after starter pack is complete Shetal Poole CHANTIX STARTING MONTH STEPHANIE 0.5 MG X 11 & 1 MG X 42 ORAL TABLET take starter pack as directed Shetal Poole LEXAPRO 10 MG ORAL TABLET 1 By Mouth Every Day with 5mg pill to equal 15mg daily dose Shetal Poole LEXAPRO 5 MG ORAL TABLET 1 pill by mouth daily with 10mg pill to equal 15mg daily dose Shetal Poole CHANTIX 1 MG TABLET TAKE DIRECTED PER package instructions - Geraldo Marie BUPROPION HCL ER (SR) 150 MG ORAL TABLET EXTENDED RELEASE 12 HOUR 1 By Mouth every 12 hours - Benjamin Salcido CHANTIX CONTINUING MONTH STEPHANIE 1 MG ORAL TABLET one tablet by mouth twice a day for 8 more weeks for 12 total weeks of therapy - Benjamin Salcido CHANTIX STARTING MONTH STEPHANIE 0.5 MG X 11 & 1 MG X 42 ORAL TABLET take 0.5 mg daily for 3 days then twice a day for 4 days. Then take 1mg twice a day for 11 more weeks - Benjamin Salcido NICOTINE 21-14-7 MG/24HR TRANSDERMAL KIT - Benjamin Salcido FIORICET 50-300-40 MG ORAL CAPSULE 1 tablet every 4h as needed for headache - Benjamin Salcido TRIUMEQ 600-50-300 TABLET TAKE ONE TABLET BY MOUTH EVERY DAY WITH OR WITHOUT FOOD Sara Cabello [facility], REYATAZ CAPSULE - Benjamin Salcido NORVIR TABLET - Benjamin Salcido TRUVADA TABLET - Benjamin Salcido PROVENTIL HFA 108 (90 BASE) MCG/ACT INHALATION AEROSOL SOLUTION 2 puffs every 4 hours as needed - Benjamin Salcido SOCIAL HISTORY Date Observation Value Provider drug use, illicit Previously Jaiden Kelley " alcohol use Currently Jaiden Kelley " social history E&M . Raised by mom in [place], reports "pretty good" relationship, one half sister and two half brothers from dad's side but didn't live together growing up. Distant relationship with dad. With for 14 years, 8; relationship with family is good, close to her sister and middle brother Not homeless. Born in [facility]. City: [place] . State: [place]. lives in apartment with , have 2 kids and both are HIV negative. oldest daughter is 13y and youngest daughter is 7y. Mom also lives there. Approved for home through [employer], will start building this year. Not employed. 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 Sexual orientation: Heterosexual. Gender identity: Female. Gender of partner(s): Male. Age of first sexual intercourse: 15. Sexually Active: Yes. Identifies as straight female. Sexually active with . Dx with HIV in 2004, also positive, reports feeling okay about dx and takes medication daily. ; pt has had 4 sexual partners in her lifetime Previous Travel: None. photography, fishing, going to the beach Jaiden Kelley " social history reviewed E&M reviewed today Jaiden Kelley " assessment of health literacy ([place] 2014 Standards, 3C10) Adequate Jaiden Kelley " passive cigarette smoke exposure No Jaiden Kelley " smoking status never smoker Jaiden Kelley " Exercise Program Referral T Jaiden Kelley " Weight Management Counseling Provided T Jaiden Kelley " Nutrition intervention T Jaiden Kelley Exercise Program Referral Deni Landa " Weight Management Counseling Provided Deni Landa " Nutrition intervention Deni Landa " smoking, advice to quit Yes Shetal Poole " alcohol use Currently Shetal Poole " drug use, illicit Previously Shetal Poole " smoking status current every day smoker Shetal Poole social history E&M . Raised by mom in [place], reports "pretty good" relationship, one half sister and two half brothers from dad's side but didn't live together growing up. Distant relationship with dad. With for 14 years, 8; relationship with family is good, close to her sister and middle brother Not homeless. Born in [facility]. City: [place] . State: [place]. lives in apartment with , have 2 kids and both are HIV negative. oldest daughter is 13y and youngest daughter is 7y. Mom also lives there. Approved for home through [employer], will start building this year. Not employed. 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 Sexual orientation: Heterosexual. Gender identity: Female. Gender of partner(s): Male. Age of first sexual intercourse: 15. Sexually Active: Yes. Identifies as straight female. Sexually active with . Dx with HIV in 2004, also positive, reports feeling okay about dx and takes medication daily. ; pt has had 4 sexual partners in her lifetime Previous Travel: None. photography, fishing, going to the beach Benjamin Salcido " social history reviewed E&M reviewed today Benjamin Salcido " drug use, illicit Currently Preeti Urbina " alcohol use Currently Preeti Urbina " is there any chance that you could be ? No Preeti Urbina " assessment of health literacy ([place] 2014 Standards, 3C10) Adequate Preeti Urbina " smoking status current every day smoker Preeti Urbina drug use, illicit Currently Geraldogus Marie " alcohol use Currently Geraldogus Marie " smoking status current every day smoker Geraldogus Marie " family support Raised by mom in [place], reports "pretty good" relationship, one half sister and two half brothers from dad's side but didn't live together growing up. Distant relationship with dad. With for 14 years, 8; relationship with family is good, close to her sister and middle brother Geraldo Marie " home/family situation, assessment lives in apartment with , have 2 kids and both are HIV negative. oldest daughter is 13y and youngest daughter is 7y. Mom also lives there. Approved for home through [employer], will start building this year. Geraldo Marie " social history E&M . Raised by mom in [place], reports "pretty good" relationship, one half sister and two half brothers from dad's side but didn't live together growing up. Distant relationship with dad. With for 14 years, 8; relationship with family is good, close to her sister and middle brother Not homeless. Born in [facility]. City: [place] . State: [place]. lives in apartment with , have 2 kids and both are HIV negative. oldest daughter is 13y and youngest daughter is 7y. Mom also lives there. Approved for home through [employer], will start building this year. Not employed. 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 Sexual orientation: Heterosexual. Gender identity: Female. Gender of partner(s): Male. Age of first sexual intercourse: 15. Sexually Active: Yes. Identifies as straight female. Sexually active with . Dx with HIV in 2004, also positive, reports feeling okay about dx and takes medication daily. ; pt has had 4 sexual partners in her lifetime Previous Travel: None. photography, fishing, going to the beach Geraldo Marie " social history reviewed E&M reviewed today Geraldo Marie " Exercise Program Referral T Geraldo Marie " Weight Management Counseling Provided T Geraldo Marie " Nutrition intervention Deni Marie smoking, advice to quit Yes Maria Eugenia Whiteside " Exercise Program Referral T Maria Eugenia Whiteside " Weight Management Counseling Provided T Maria Eugenia Whiteside " Nutrition intervention Deni Whiteside " drug use, illicit Previously Simin Senegal " alcohol use Currently Simin [place] " social history E&M . Raised by mom, reports "pretty good" relationship, one half sister and two half brothers from dad's side but didn't live together growing up. Distant relationship with dad. With for 14 years, 8. Not homeless. Born in [facility]. City: [place] . State: [place]. lives in apartment with , have 2 kids and both are HIV negative. oldest daughter is 12y and youngest daughter is 7y. Mom also lives there. Approved for home through [employer], will start building this year. Employed. 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 Sexual orientation: Heterosexual. Gender identity: Female. Gender of partner(s): Male. Age of first sexual intercourse: 15. Sexually Active: Yes. Identifies as straight female. Sexually active with . Dx with HIV in 2004, also positive, reports feeling okay about dx and takes medication daily. Previous Travel: None. driven [facility] " social history reviewed E&M reviewed today [facility] " assessment of health literacy ([facility] 2014 Standards, 3C10) Adequate [facility] " is there any chance that you could be ? No Simin [place] " passive cigarette smoke exposure No Simin [place] " smoking status current every day smoker [facility] Exercise Program Referral Deni Whiteside " Weight Management Counseling Provided Deni Whiteside " Nutrition intervention Deni Whiteside " is there any chance that you could be ? No Bryanna Correa " assessment of health literacy ([facility] 2014 Standards, 3C10) Adequate Bryannapapa Correa " passive cigarette smoke exposure No Bryanna Correa " drug use, illicit Previously Bryannapapa Correa " smoking status current every day smoker Bryanna Correa " social history E&M . Raised by mom, reports "pretty good" relationship, one half sister and two half brothers from dad's side but didn't live together growing up. Distant relationship with dad. With for 14 years, 8. Not homeless. Born in [facility]. City: [place] . State: [place]. lives in apartment with , have 2 kids and both are HIV negative. oldest daughter is 12y and youngest daughter is 7y. Mom also lives there. Approved for home through [employer], will start building this year. Employed. 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 Sexual orientation: Heterosexual. Gender identity: Female. Gender of partner(s): Male. Age of first sexual intercourse: 15. Sexually Active: Yes. Identifies as straight female. Sexually active with . Dx with HIV in 2004, also positive, reports feeling okay about dx and takes medication daily. Previous Travel: None. driven Bryanna Correa " social history reviewed E&M reviewed today Bryanna Correa smoking, advice to quit Yes Maria Eugenia Whiteside " Exercise Program Referral Deni Whiteside " Weight Management Counseling Provided T Maria Eugenia Whiteside " Nutrition intervention Deni Whiteside " drug use, illicit [facility] " alcohol use, frequency holidays/special occasions only [facility] " alcohol use Currently [facility] " social history - sexual practice Identifies as straight female. Sexually active with . Dx with HIV in 2004, also positive, reports feeling okay about dx and takes medication daily. ; pt has had 4 sexual partners in her lifetime [facility] " family support Raised by mom, reports "pretty good" relationship, one half sister and two half brothers from dad's side but didn't live together growing up. Distant relationship with dad. With for 14 years, 8. ; relationship with family is good Simin [place] " is there any chance that you could be ? No Simin [place] " assessment of health literacy ([facility] 2014 Standards, 3C10) Adequate Simin [place] " passive cigarette smoke exposure No Simin [place] " smoking status current every day smoker Simin [place] alcohol use, number maximum drinks per occasion 2-4 Neelam Mekoryuk " alcohol use, frequency few times per month Neelam [place] " cigarettes, number smoked per day 1-4 Neelam Mek[place]uk " drug use, illicit Previously Neelam [place] " alcohol use Currently Neelam [place] " smoking status current every day smoker Neelam [place] " social history reviewed E&M reviewed today Neelam Thomas " social history E&M . Raised by mom, reports "pretty good" relationship, one half sister and two half brothers from dad's side but didn't live together growing up. Distant relationship with dad. With for 14 years, 8. Not homeless. Born [place]. City: [place] . State: [place]. lives in apartment with , have 2 kids and both are HIV negative. oldest daughter is 12y and youngest daughter is 7y. Mom also lives there. Approved for home through [employer], will start building this year. Employed. 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 Sexual orientation: Heterosexual. Gender identity: Female. Gender of partner(s): Male. Age of first sexual intercourse: 15. Sexually Active: Yes. Identifies as straight female. Sexually active with . Dx with HIV in 2004, also positive, reports feeling okay about dx and takes medication daily. Previous Travel: None. driven Neelam William " social history - sexual practice Identifies as straight female. Sexually active with . Dx with HIV in 2004, also positive, reports feeling okay about dx and takes medication daily. Neelam Thomas " Occupation #1 Student Neelam Thomas" family support Raised by mom, reports "pretty good" relationship, one half sister and two half brothers from dad's side but didn't live together growing up. Distant relationship with dad. With for 14 years, 8. Neelam [place] " home/family situation, assessment lives in apartment with , have 2 kids and both are HIV negative. oldest daughter is 12y and youngest daughter is 7y. Mom also lives there. Approved for home through [employer], will start building this year. Neelam William Exercise Program Referral Deni Salcido " Weight Management Counseling Provided Deni Salcido " Nutrition intervention Deni Salcido " drug use, illicit Previously Preeti Urbina " alcohol use Previously Preeti Urbina " is there any chance that you could be ? No Preeti Urbina " assessment of health literacy ([place] 2014 Standards, 3C10) Adequate Preeti Urbina " smoking status current every day smoker Preeti Urbina Exercise Program Referral Deni Salcido " Weight Management Counseling Provided Deni Saclido " Nutrition intervention Deni Salcido " drug use, illicit Previously Preeti Urbina " alcohol use Previously Preeti Urbina " is there any chance that you could be ? No Preeti Urbina " smoking status current every day smoker Preeti Urbina " assessment of health literacy ([facility] 2014 Standards, 3C10) Adequate Preeti Urbina social history E&M . Not homeless. Born in [facility]. City: [place] . State: [place]. lives with , have 2 kids and both are HIV negative. 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 Sexual orientation: Heterosexual. Gender identity: Female. Gender of partner(s): Male. Age of first sexual intercourse: 15. Sexually Active: Yes. sexually active with Previous Travel: None. driven Benjamin Salcido " social history reviewed E&M reviewed today Benjamin Salcido " Exercise Program Referral Deni Salcido " Weight Management Counseling Provided T Benjamin Salcido " Nutrition intervention Deni Salcido " drug use, illicit Previously Preeti Urbina " alcohol use Previously Preeti Urbina " is there any chance that you could be ? No Preeti Urbina " smoking status current every day smoker Bautistacl Urbina " assessment of health literacy ([facility] 2014 Standards, 3C10) Adequate Preeti Urbina smoking, advice to quit Yes José Miguel Hernandez " sexual orientation Heterosexual Alexa Colon " drug use, illicit Previously Alexakristian Colon " alcohol use Previously Alexa Colon " social history E&M . Not homeless. Born in [facility]. City: [place] . State: [place]. lives with , have 2 kids and both are HIV negative. 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 Sexual orientation: Heterosexual. Gender identity: Female. Gender of partner(s): Male. Age of first sexual intercourse: 15. Sexually Active: Yes. sexually active with Previous Travel: None. driven Alexa Colon " social history reviewed E&M reviewed today Alexa Colon " is there any chance that you could be ? No Alexa Colon " passive cigarette smoke exposure No Alexa Colon " smoking status current every day smoker Alexa Isaiah " Exercise Program Referral T Alexa Colon " Weight Management Counseling Provided T Alexa Colon " Nutrition intervention T Alexa Colon " assessment of health literacy ([facility] 2014 Standards, 3C10) Adequate Alexa Colon smoking/tobacco cessation, patient education and counseling Education done, Cessation information provided, Referred to cessation class Corrie Chau " tobacco use (cigarettes, cigar, chew, pipe) Never Corrie Chau " smoking status current every day smoker Corrie Chau sexual orientation Heterosexual Sue Shannon sexual orientation Heterosexual Sue Shannon smoking/tobacco cessation, patient education and counseling Education done, Referred to cessation class Benjamin Salcido " Exercise Program Referral T Benjamin Salcido " Weight Management Counseling Provided T Benjamin Salcido " Nutrition intervention T Benjamin Salcido " alcohol use Previously Preeti Urbina " drug use, illicit Previously Preeti Urbina " is there any chance that you could be ? No Preeti Urbina " smoking status current every day smoker Preeti Urbina social history E&M . Not homeless. Born in [facility]. City: [place] . State: [place]. lives with , have 2 kids and both are HIV negative. 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 Sexual orientation: Heterosexual. Gender identity: Female. Gender of partner(s): Male. Age of first sexual intercourse: 15. Sexually Active: Yes. sexually active with Previous Travel: None. driven Jacinta Marie " Occupation #1 special ed aide Jacinta Marie " patient considered to be homeless No Jacinta Marie " sexual orientation Heterosexual Jacinta Marie " sex at Female Jacinta Marie " social history - sexual practice sexually active with Jacinta Marie " home/family situation, assessment lives with , have 2 kids and both are HIV negative. oldest daughter is 10y and youngest daughter is 5y Jacinta Marie " social history reviewed E&M reviewed today Syuapa Leung " drug use, illicit Previously Jacinta Marie " alcohol use Previously Jacinta Marie " passive cigarette smoke exposure No Suyapa Leung " smoking status current every day smoker Suyapa Leung " is there any chance that you could be ? No Suyapa Leung drug use, illicit Never Bautistacl Carlitos " alcohol use Never Preeti Urbina " is there any chance that you could be ? No Preeti Urbina " smoking status current every day smoker Preeti Urbina social history reviewed E&M reviewed today Benjamin Salcido " is there any chance that you could be ? No Preeti Urbina " smoking status current every day smoker Preeti Urbina FUNCTIONAL STATUS No Information Available MENTAL STATUS Date Observation Value Provider Generalized Anxiety Disorder Questionnaire - Question 2 0 Jaiden Kelley " Generalized Anxiety Disorder Questionnaire - Question 1 0 Jaiden Kelley mental status assessment, judgment good Shetal Poole " insight (mental status exam) good Shetal Poole " Mental Status Exam: intelligence adequate fund of information, intact memory processes, oriented to person, oriented to place, oriented to time, oriented to situation, oriented to reality Shetal Poole " hallucinations none Shetal Poole " thought content (mental status exam) (E&M) lucid Shetal Poole " mental status assessment, process able to abstract, goal-directed, logical Shetal Poole " mental status assessment, sensorium alert, attentive, clear Shetal Poole " affect (mental status exam) congruent, euthymic, normal intensity, normal range Shetal Poole " mood (mental status exam) pleasant Shetal Poole " mental status assessment, speech activity normal flow, normal pace, normal pressure, normal rate, normal tone, normal volume, spontaneous Shetal Poole " mental status assessment, motor activity normal gait, normal posture Shetal Poole " behavior (mental status exam) appropriate, candid, cooperative, good eye contact, polite, responsive Shetal Poole " mental appearance (mental status exam) adequate hygiene, appropriate dress, looks like stated age, neat Shetal Poole mental status assessment, judgment good Neelamchristiana Boschale " insight (mental status exam) good Neelam Mekoryuk " Mental Status Exam: intelligence adequate fund of information, intact memory processes, oriented to person, oriented to place, oriented to time, oriented to situation, oriented to reality Neelam [place] " hallucinations none Neelam [place] " thought content (mental status exam) (E&M) lucid Neelam [place] " mental status assessment, process able to abstract, goal-directed, logical Neelam Mekoryuk " mental status assessment, sensorium alert, attentive, clear Neelam Mekoryuk " affect (mental status exam) congruent, euthymic, normal intensity, normal range Neelam Mekoryuk " mood (mental status exam) pleasant Neelam Mekoryuk " mental status assessment, speech activity normal flow, normal pace, normal pressure, normal rate, normal tone, normal volume, spontaneous Neelam Mekoryuk " mental status assessment, motor activity normal gait, normal posture Neelam Mekoryuk " behavior (mental status exam) appropriate, candid, cooperative, good eye contact, polite, responsive Neelam Mekoryuk " mental appearance (mental status exam) adequate hygiene, appropriate dress, looks like stated age, neat Neelam Mekoryuk mental status assessment, judgment good Neelam Mekoryuk " insight (mental status exam) good Neelam Mekoryuk " Mental Status Exam: intelligence adequate fund of information, intact memory processes, oriented to person, oriented to place, oriented to time, oriented to situation, oriented to reality Neelam Mekoryuk " hallucinations none Neelam Mekoryuk " thought content (mental status exam) (E&M) lucid Neelam Mekoryuk " mental status assessment, process able to abstract, goal-directed, logical Neelam Mekoryuk " mental status assessment, sensorium alert, attentive, clear Neelam [place] " affect (mental status exam) congruent, euthymic, normal intensity, normal range Neelam [place] " mood (mental status exam) anxious, pleasant Neelam [place] " mental status assessment, speech activity normal flow, normal pace, normal pressure, normal rate, normal tone, normal volume, spontaneous Neelam [place] " mental status assessment, motor activity normal gait, normal posture Neelam [place] " behavior (mental status exam) appropriate, candid, cooperative, good eye contact, polite, responsive Neelam [place] " mental appearance (mental status exam) adequate hygiene, appropriate dress, looks like stated age, neat Neelam [place]uk mental status assessment, judgment good Shetal Poole " insight (mental status exam) good Shetal Poole " Mental Status Exam: intelligence adequate fund of information, intact memory processes, oriented to person, oriented to place, oriented to time, oriented to situation, oriented to reality Shetal Poole " hallucinations none Shetal Poole " thought content (mental status exam) (E&M) lucid Shetal Poole " mental status assessment, process able to abstract, goal-directed, logical Shetal Poole " mental status assessment, sensorium alert, attentive, clear Shetal Poole " affect (mental status exam) congruent, euthymic, normal intensity, normal range Shetal Poole " mood (mental status exam) anxious, pleasant Shetal Poole " mental status assessment, speech activity normal flow, normal pace, normal pressure, normal rate, normal tone, normal volume, spontaneous Shetal Poole " mental status assessment, motor activity normal gait, normal posture Shetal Poole " behavior (mental status exam) appropriate, candid, cooperative, good eye contact, polite, responsive Shetal Poole " mental appearance (mental status exam) adequate hygiene, appropriate dress, looks like stated age, neat Shetal Poole assessment of mood and affect E&M no depression, anxiety, or agitation Benjamin Salcido " Generalized Anxiety Disorder Questionnaire - Question 2 0 Preeti Urbina " Generalized Anxiety Disorder Questionnaire - Question 1 0 Preeti Urbina mental status assessment, judgment good Geraldo Marie " insight (mental status exam) good Geraldo Marie " Mental Status Exam: intelligence adequate fund of information, intact memory processes, oriented to person, oriented to place, oriented to time, oriented to situation, oriented to reality Geraldo Marie " hallucinations none Geraldo Marie " thought content (mental status exam) (E&M) lucid Geraldo Marie " mental status assessment, process able to abstract, goal-directed, logical Geraldo Marie " mental status assessment, sensorium alert, attentive, clear Geraldo Marie " affect (mental status exam) congruent, euthymic, normal intensity, normal range Geraldo Marie " mental status assessment, speech activity normal flow, normal pace, normal pressure, normal rate, normal tone, normal volume, spontaneous Geraldo Marie " mental status assessment, motor activity normal gait, normal posture Geraldo Marie " behavior (mental status exam) appropriate, candid, cooperative, good eye contact, polite, responsive Geraldo Marie " mental appearance (mental status exam) adequate hygiene, appropriate dress, looks like stated age, neat Geraldo Marie " anxiety worry a lot, sleep disturbance, restlessness, irritability, many physical complaints, muscle tension, obsessions/compulsions Geraldo Marie mental status assessment, judgment good Neelam [place] " insight (mental status exam) good Neelam [place] " Mental Status Exam: intelligence adequate fund of information, intact memory processes, oriented to person, oriented to place, oriented to time, oriented to situation, oriented to reality Neelam [place] " hallucinations No Neelam [place] " thought content (mental status exam) (E&M) lucid Neelam [place] " mental status assessment, process able to abstract, goal-directed, logical Neelam [place] " mental status assessment, sensorium alert, attentive, clear Neelam [place] " affect (mental status exam) congruent, normal intensity, normal range, constricted Neelam [place] " mood (mental status exam) anxious, depressed Neelam M[place] " mental status assessment, speech activity normal flow, normal pace, normal pressure, normal rate, normal tone, normal volume, spontaneous Neelam [place] " mental status assessment, motor activity normal gait, normal posture Neelam [place] " behavior (mental status exam) appropriate, candid, cooperative, good eye contact, polite, responsive Neelam [place] " mental appearance (mental status exam) adequate hygiene, appropriate dress, looks like stated miah, adina Boschale mental status assessment, judgment good Neelam M[place] " insight (mental status exam) good Neelam M[place] " Mental Status Exam: intelligence adequate fund of information, intact memory processes, oriented to person, oriented to place, oriented to time, oriented to situation, oriented to reality Neelam M[place] " hallucinations No Neelam [place] " thought content (mental status exam) (E&M) lucid Neelam [place] " mental status assessment, process able to abstract, goal-directed, logical Neelam [place] " mental status assessment, sensorium alert, attentive, clear Neelam [place] " affect (mental status exam) congruent, normal intensity, normal range, constricted Neelam [place] " mood (mental status exam) anxious, depressed Neelam M[place] " mental status assessment, speech activity normal flow, normal pace, normal pressure, normal rate, normal tone, normal volume, spontaneous Neelam [place] " mental status assessment, motor activity normal gait, normal posture Neelam [place] " behavior (mental status exam) appropriate, candid, cooperative, good eye contact, polite, responsive Neelam [place] " mental appearance (mental status exam) adequate hygiene, appropriate dress, looks like stated age, adina Boschale mental status assessment, judgment good Neelam M[place] " insight (mental status exam) good Neelam [place] " Mental Status Exam: intelligence adequate fund of information, intact memory processes, oriented to person, oriented to place, oriented to time, oriented to situation, oriented to reality Neelam Mekoryuk " hallucinations No Neelam M[place]uk " thought content (mental status exam) (E&M) lucid Neelam M[place]oryuk " mental status assessment, process able to abstract, goal-directed, logical Neelam M[place] " mental status assessment, sensorium alert, attentive, clear Neelam [place] " affect (mental status exam) congruent, normal intensity, normal range, constricted Neelam [place] " mood (mental status exam) anxious, depressed Neelam M[place] " mental status assessment, speech activity normal flow, normal pace, normal pressure, normal rate, normal tone, normal volume, spontaneous Neelam [place] " mental status assessment, motor activity normal gait, normal posture Neelam M[place]uk " behavior (mental status exam) appropriate, candid, cooperative, good eye contact, polite, responsive Neelam M[place] " mental appearance (mental status exam) adequate hygiene, appropriate dress, looks like stated age, adina Boschale mental status assessment, judgment good Neelma Mekoryuk " insight (mental status exam) good Neelam [place] " Mental Status Exam: intelligence adequate fund of information, intact memory processes, oriented to person, oriented to place, oriented to time, oriented to situation, oriented to reality Neelam Mekoryuk " hallucinations No Neelam M[place] " thought content (mental status exam) (E&M) lucid Neelam M[place] " mental status assessment, process able to abstract, goal-directed, logical Neelam M[place] " mental status assessment, sensorium alert, attentive, clear Neelam M[place]uk " affect (mental status exam) congruent, normal intensity, normal range, constricted Neelam [place] " mood (mental status exam) anxious, depressed Neelam M[place] " mental status assessment, speech activity normal flow, normal pace, normal pressure, normal rate, normal tone, normal volume, spontaneous Neelam M[place] " mental status assessment, motor activity normal gait, normal posture Neelam [place] " behavior (mental status exam) appropriate, candid, cooperative, good eye contact, polite, responsive Neelam [place] " mental appearance (mental status exam) adequate hygiene, appropriate dress, looks like stated age, neat Neelam [place] assessment of judgment and insight E&M intact Maria Eugenia Whiteside " mental status examination: orientation E&M oriented to time, place, and person Maria Eugeniamorteza Whiteside " assessment of mood and affect E&M no depression, anxiety, or agitation Maria Eugeniamorteza Whiteside " Generalized Anxiety Disorder Questionnaire - Question 2 3 [facility] " Generalized Anxiety Disorder Questionnaire - Question 1 3 [facility] mood (mental status exam) anxious, depressed Neelam [place] " delusion No Neelam M[place] " mental status assessment, judgment good Neelam M[place] " insight (mental status exam) good Neelam M[place] " Mental Status Exam: intelligence adequate fund of information, intact memory processes, oriented to person, oriented to place, oriented to time, oriented to situation, oriented to reality Neelam Mekoryuk " hallucinations No Neelam M[place] " thought content (mental status exam) (E&M) lucid Neelam Mekoryuk " mental status assessment, process able to abstract, goal-directed, logical Neelam M[place] " mental status assessment, sensorium alert, attentive, clear Neelam M[place]ory[place] " affect (mental status exam) congruent, normal intensity, normal range, constricted Neelam M[place] " mental status assessment, speech activity normal flow, normal pace, normal pressure, normal rate, normal tone, normal volume, spontaneous Neelam [place] " mental status assessment, motor activity normal gait, normal posture Neelam M[place] " behavior (mental status exam) appropriate, candid, cooperative, good eye contact, polite, responsive Neelam M[place] " mental appearance (mental status exam) adequate hygiene, appropriate dress, looks like stated age, neat Neelam [place] " If any problems checked, how difficult have these problems made it for you to do your work, take care of things at home, or get along with other people (GAD7, question 8) 1 Neelam Mekoryuk " Generalized Anxiety Disorder Questionnaire - Question 7 2 Neelam Mekoryuk " Generalized Anxiety Disorder Questionnaire - Question 6 2 Neelam Mekoryuk " Generalized Anxiety Disorder Questionnaire - Question 5 1 Neelam Mekoryuk " Generalized Anxiety Disorder Questionnaire - Question 4 2 Neelam Mekory[place] " Generalized Anxiety Disorder Questionnaire - Question 3 2 Neelam M[place]ory[place] " Generalized Anxiety Disorder Questionnaire - Question 2 2 Neelam Mekory[place] " Generalized Anxiety Disorder Questionnaire - Question 1 3 Neelam Mekoryuk assessment of mood and affect E&M good eye contact, normal affect [facility] " mental status examination: orientation E&M alert and oriented to person, place, and time [facility] Generalized Anxiety Disorder Questionnaire - Question 2 0 Preeti Urbina " Generalized Anxiety Disorder Questionnaire - Question 1 0 Preeti Urbina Generalized Anxiety Disorder Questionnaire - Question 2 0 Preeti Urbina " Generalized Anxiety Disorder Questionnaire - Question 1 0 Preeti Urbina Generalized Anxiety Disorder Questionnaire - Question 2 0 Preeti Urbina " Generalized Anxiety Disorder Questionnaire - Question 1 0 Preeti Urbina mental status examination: orientation E&M alert and oriented to person, place, and time José Miguel Hernandez " assessment of mood and affect E&M good eye contact, normal affect José Miguel Mary " Generalized Anxiety Disorder Questionnaire - Question 2 0 Alexa Colon " Generalized Anxiety Disorder Questionnaire - Question 1 0 Alexa Colon assessment of mood and affect E&M good eye contact, normal affect [facility] " mental status examination: orientation E&M alert and oriented to person, place, and time [facility] assessment of mood and affect E&M no depression, anxiety, or agitation Benjamin Salcido " Generalized Anxiety Disorder Questionnaire - Question 2 0 Preeti Urbina " Generalized Anxiety Disorder Questionnaire - Question 1 0 Preeti Urbina Generalized Anxiety Disorder Questionnaire - Question 2 0 Suyapa Leung " Generalized Anxiety Disorder Questionnaire - Question 1 0 Suyapa Leung Generalized Anxiety Disorder Questionnaire - Question 2 0 Preeti Urbina " Generalized Anxiety Disorder Questionnaire - Question 1 0 Preeti Urbina Generalized Anxiety Disorder Questionnaire - Question 2 0 Preeti Urbina " Generalized Anxiety Disorder Questionnaire - Question 1 0 Preeti Carlitos assessment of mood and affect E&M good eye contact, normal affect Stevo Doherty " mental status examination: orientation E&M alert and oriented to person, place, and time Stevo Doherty MEDICAL EQUIPMENT No Information Available FAMILY HISTORY No Information Available INSURANCE PROVIDERS Payer name Policy type / Coverage type Covered democrat ID Gerson White 101-200% Other [id number] Gerson White 101-200% Other Gerson White 101-200% Other Gerson White 101-200% Other Gerson White 101-200% Other [id number] Gerson White 101-200% Other Gerson White 101-200% Other Gerson White 101-200% Other Sliding Fee - Cat 2 Commercial insurance company Gerson White 101-200% Other Sliding Fee - Cat 1 Commercial insurance company *Gerson White 0-100% Other Sliding Fee - Cat 2 Commercial insurance company [id number] Sliding Fee - Cat 5 Commercial insurance company [id number] Gerson White 101-200% Other [id number] Gerson White 101-200% Other 17 Copay Assistance - Financial Services Other [id number] Cigna [employer] [id number] Gerson White up to 300% Other [id number] Sliding Fee Scale Commercial insurance company [id number] ADVANCE DIRECTIVES Name Date DISCUSSED - NO DECISION MADE TREATMENT PLAN Date Name RPR, Rfx Qn RPR/Confirm TP Comp. Metabolic Panel (14) CBC With Differential/Platelet CD4/CD8 Ratio Profile RNA, Real Time PCR (Graph) RPR, Rfx Qn RPR/Confirm TP Comp. Metabolic Panel (14) CBC With Differential/Platelet CD4/CD8 Ratio Profile RNA, Real Time PCR (Graph) Chlamydia/GC Amplification (Urine) HBsAg Screen HCV Antibody Lipid Panel RPR, Rfx Qn RPR/Confirm TP Comp. Metabolic Panel (14) CBC With Differential/Platelet CD4/CD8 Ratio Profile RNA, Real Time PCR (Graph) TSH Rfx on Abnormal to Free T4 Rubella Antibodies, IgG Pap w/HPV w rflx 16/18/45 (30+) Lipid Panel Hemoglobin A1c Comp. Metabolic Panel (14) CBC With Differential/Platelet Gc/Ct/Trich RPR, Rfx Qn RPR/Confirm TP HBsAg Screen HCV Antibody TSH Rfx on Abnormal to Free T4 RPR, Rfx Qn RPR/Confirm TP Comp. Metabolic Panel (14) CBC With Differential/Platelet CD4/CD8 Ratio Profile RNA, Real Time PCR (Graph) QuantiFERON - TB Gold ( Client Incubated ) RPR, Rfx Qn RPR/Confirm TP Comp. Metabolic Panel (14) CBC With Differential/Platelet CD4/CD8 Ratio Profile RNA, Real Time PCR (Graph) Chlamydia/GC Amplification HBsAg Screen HCV Antibody Lipid Panel RPR, Rfx Qn RPR/Confirm TP Comp. Metabolic Panel (14) CBC With Differential/Platelet CD4/CD8 Ratio Profile RNA, Real Time PCR (Graph) RPR, Rfx Qn RPR/Confirm TP Comp. Metabolic Panel (14) CBC With Differential/Platelet CD4/CD8 Ratio Profile Lipid Panel RNA, Real Time PCR (Graph) HCV Antibody RPR, Rfx Qn RPR/Confirm TP Comp. Metabolic Panel (14) CD4/CD8 Ratio Profile RNA, Real Time PCR (Graph) RPR, Rfx Qn RPR/Confirm TP Comp. Metabolic Panel (14) CD4/CD8 Ratio Profile RNA, Real Time PCR (Graph) HLA B5701 Test QuantiFERON TB Gold (In Tube) Toxoplasma gondii Ab, IgG, Qn RPR RNA, Real Time PCR (Graph) Lipid Panel HIV 1/2 ANTIGEN/ANTIBODY, FOURTH GENERATION W/RFL HCV Antibody HBsAg Screen Hep B Surface Ab Hep B Core Ab, Tot Hep A Ab, Total Comp. Metabolic Panel (14) Chlamydia/GC Amplification CD4/CD8 Ratio Profile HLA B5701 Test TSH Rfx on Abnormal to Free T4 Hemoglobin A1c PAP with HPV w/rflx. to 16, 18, 45 (Aptima) RPR RNA, Real Time PCR (Graph) Lipid Panel HIV 1/2 ANTIGEN/ANTIBODY, FOURTH GENERATION W/RFL HCV Antibody HBsAg Screen Hep B Surface Ab Hep B Core Ab, Tot Hep A Ab, Total Comp. Metabolic Panel (14) Chlamydia/GC Amplification CD4/CD8 Ratio Profile - Est Patient Exp Problem - 64270 Est Patient Exp Problem - 19438 Psychotherapy 30 (16-37*) min - 60476 (with patient and/or family member) IB Brief Follow Up Psychotherapy 30 (16-37*) min - 43875 (with patient and/or family member) IB Brief Follow Up Est Patient Exp Problem - 21857 Est Patient Exp Problem - 75409 Diagnostic evaluation with medical - 21006 IB Brief Follow Up Psychotherapy 30 (16-37*) min - 02286 (with patient and/or family member) Psychotherapy 30 (16-37*) min - 17049 (with patient and/or family member) Behavioral Health - Psychiatry IB Brief Follow Up Est Patient Exp Problem - 25475 Est Patient Exp Problem - 26033 Psychotherapy 30 (16-37*) min - 47215 (with patient and/or family member) IB Brief Follow Up Psychotherapy 30 (16-37*) min - 45335 (with patient and/or family member) IB Brief Follow Up Est Patient Well Exam (18 - 39 Yrs) - 35715 Venipuncture Diagnostic evaluation (no medical) - 45409 [facility] Assessment - Ironer Est Patient Comprehensive Opth - 87841 Est Patient Detailed - 95711 Integrated Behavioral Health Assessment (IBH) Est Patient Exp Problem - 15713 Est Patient Detailed - 06036 Ofc Vst, Est Level IV INFLUENZA VACCINE QUADRIVALENT 3 YRS PLUS IM Est Patient Intermediate Opth - 45245 Dispensing Visit (UNLIVSTED OPHTHALMOLOGICAL SERVICE/PROCEDURE) Primary Care Medical Case Management Frames, purchases Spherocyl, SV, plano to +/- 4.00d sphere, 2.12 to 4.00d cyl, per lens Spherocyl, SV, plano to +/- 4.00d sphere, 0.12 to 2.00d cyl, per lens Est Patient Intermediate Opth - 15847 Est Patient Detailed - 78471 Health Education/Supportive Counseling Primary Care Medical Case Management Ofc Vst, Est Level IV Handling of specimen for transfer Venipuncture Primary Care Medical Case Management Est Patient Exp Problem - 45738 Behavioral Health - Therapy Primary Care - Service Planning Comprehensive Primary Care - Assesment-Comprehensive [facility] Primary Care Medical Case Management New Patient Detailed - 44566 Handling of specimen for transfer Venipuncture Dispensing Visit (UNLIVSTED OPHTHALMOLOGICAL SERVICE/PROCEDURE) Est Patient Intermediate Opth - 10886 Frames, purchases Spherocyl, SV, plano to +/- 4.00d sphere, 0.12 to 2.00d cyl, per lens New Patient Intermediate Opth - 24444 HISTORY OF PROCEDURES Procedure Date Procedure Name Provider Procedure Notes Status Psychotherapy 30 (16-37*) min - 61451 (with patient and/or family member) Neelam Thomas completed IB Brief Follow Up Neelam Thomas completed Psychotherapy 30 (16-37*) min - 53178 (with patient and/or family member) Neelam Benedictsdale completed IB Brief Follow Up Neelam Boschale completed Diagnostic evaluation with medical - 51853 Calderon Landa completed [facility] Brief Follow Up Neelam Thomas completed Psychotherapy 30 (16-37*) min - 11512 (with patient and/or family member) Neealm William completed Psychotherapy 30 (16-37*) min - 39744 (with patient and/or family member) Neelam William completed IB Brief Follow Up Neelam Benedict[place]ale completed Psychotherapy 30 (16-37*) min - 43991 (with patient and/or family member) Neelam Thomas completed IB Brief Follow Up Neelam Thomas completed Psychotherapy 30 (16-37*) min - 70983 (with patient and/or family member) Neelam Thomas completed IB Brief Follow Up Neelam Thomas completed Venipuncture Maria Eugenia Whiteside completed Diagnostic evaluation (no medical) - 47387 Neelam Thomas completed IB Assessment - Ironer Neelam Thomas completed Est Patient Comprehensive Opth - 26568 Stevo Mendez Doherty completed Est Patient Intermediate Opt - 60655 Stevo Doherty completed Dispensing Visit (UNLIVSTED OPHTHALMOLOGICAL SERVICE/PROCEDURE) Maira Patel completed Primary Care Medical Case Management Yodit Meserve Time spent with patient: 30 completed Frames, purchases Sue Shannon completed Spherocyl, SV, plano to +/- 4.00d sphere, 2.12 to 4.00d cyl, per lens Sue Shannon completed Spherocyl, SV, plano to +/- 4.00d sphere, 0.12 to 2.00d cyl, per lens Sue Shannon completed Est Patient Intermediate Opt - 63497 Dileep Aleman completed Health Education/Supportive Counseling [facility] Provider completed Primary Care Medical Case Management Neelam Thomas Time spent with patient:15 completed Venipuncture Jacinta Marie completed Primary Care Medical Case Management Yodit Meserve Time spent with patient: 20 completed Primary Care - Service Planning Comprehensive Yodit Meserve Time spent with patient: 30 completed Primary Care - Assesment-Comprehensive [facility] Yodit Meserve Time spent with patient: 30 completed Primary Care Medical Case Management Yodit Meserve Time spent with patient: 80 completed Venipuncture Benjamin Salcido completed Dispensing Visit (UNLIVSTED OPHTHALMOLOGICAL SERVICE/PROCEDURE) Sue Shannon completed Est Patient Intermediate Opt - 64000 Stevo Vanessa Doherty completed Frames, purchases Sue Shannon completed Spherocyl, SV, plano to +/- 4.00d sphere, 0.12 to 2.00d cyl, per lens Sue Shannon completed New Patient Intermediate Opth - 93461 Dileep Aleman completed GOALS No Information Available HEALTH CONCERNS No Information Available
== END 2019-10-17 14:48 | disposition home or self-care (01) ==
LOC: ER 08:42
DX: J06.0 Acute laryngopharyngitis (principal); J45.909 Unspecified asthma, uncomplicated; F17.200 Nicotine dependence, unspecified, uncomplicated; Z88.0 Allergy status to penicillin
CPT/HCPCS: 71046; 99283

== ENCOUNTER 2025-02-02 13:08 | Emergency (ER) | payer OTHER ==
[~2025-02-02] VITALS: Ht 165.1 cm; Wt 117.9 kg
[2025-02-02 13:46] VITALS: TEMP 98.8
[2025-02-02] MEDS: KETOROLAC TROMETHAMINE 60 MG/2 ML VIAL IM ONE (15:44)
[2025-02-02 15:45] VITALS: PULSE 79; RESP 15; O2SAT 99
== END 2025-02-02 15:51 | disposition home or self-care (01) ==
LOC: ER 13:22
DX: M25.562 Pain in left knee (principal); I10 Essential (primary) hypertension; J45.909 Unspecified asthma, uncomplicated; B20 Human immunodeficiency virus [HIV] disease
CPT/HCPCS: 73562; 93971; 99284; J1885